=== PATIENT | male | born 1935 | race Caucasian/White ===

== ENCOUNTER 2017-09-05 11:59 | Emergency (ER) | payer MEDICARE, BC ==
[2017-09-05 12:43] VITALS: BP 132/56
--- OUTSIDE RECORDS SUMMARY | 2017-09-05 12:46 | XMS REPORT ---
:1935 External Reference #:[id number] Author Organization [facility] Address [address] [place] [address], [address] [place] [address] Phone [phone] Care Team Providers Name Role Phone Elvis Coello M.D. Care Team Information Windows Security Engineer Unavailable Payers Type Date Identification Numbers Payment Provider Subscriber Medicare Primary Policy Number: [id number] Medicare Part B Santosh Lemusn PayID: [id number] [facility] [address] [place] [address] Medigap Part B Policy Number: [id number] [place] [employer] Santosh Hedrick Steve PayID: [id number] [address] [place] [address] Problems Date Description Provider Status Onset: 10/09/2010 Coronary arteriosclerosis Elvis Coello M.D. Active Onset: 10/09/2010 Type 2 diabetes mellitus Elvis Coello M.D. Active Onset: 10/09/2010 Mixed hyperlipidemia Elvis Coello M.D. Active Onset: 10/09/2010 Benign essential hypertension Elvis Coello M.D. Active Onset: 11/25/2015 Essential hypertension Elvis Coello M.D. Active Family History Date Family Member(s) Problem(s) Comments General Hypercholesterolemia General Hypertension General Coronary Artery Disease (CAD) General Non Insulin Dependent Diabetes Social History Type Date Description Comments Cigarette Use Negative For current cigarette smoker ETOH Use does not use alcohol Smoking Patient has never smoked Allergies, Adverse Reactions, Alerts Date Description Reaction Status Severity Comments 12/23/2016 Avandia active Medications Medication Date Status Form Strength Qnty SIG Indications Ordering Provider Acidophilus 12/23 Active Capsules 60caps take one capsule [place], twice a ENSEMB[employer] MEMBER day by mouth Clopidogrel 04/21 Active Tablets 75mg 90tabs take one Elvis Bisulfate tablet by yanet Coello M.DOlivia every day Metoprolol 02/04 Active Tablets 25mg 180tabs Take One Elvis Tartrate Tablet By Yanet CoelloDOlivia Twice A Day Lexapro 10/14 Active Tablets 20mg 90tabs Take One Elvis Tablet By Yanet Coello M.DOlivia Every Day Humalog 10/26 Active Injection 100Units/ 2Vials S/scale Pricilla /2007 ML Mariluz Jaeger,PaigeNLuz Baker Micardis 06/29 Active Tablets 40mg 90tabs Take One Tablet By Yanet Coello.DOlivia Every Day Nitrostat 12/18 Active Tablets 0.4mg 25tabs 1 Emre A. /2004 Sublingua Libby Real l Q5mins prn Disposable U 12/18 Active 1Box Use as Emre A. 100 Insulin Directed Libby Real Syringes Lipitor 12/18 Active Tablets 20mg 90tabs Take One Tablet By Yanet Coello M.D. Every Day Lantus Active Solution 100Unit/M 40 units Unknown / L bid Finasteride Active Tablets 5mg 90tabs 1 po qd Foresman, Zachary Aspirin Ec Low Active Tablets DR 81mg 1 po qd Emre A. Dose / Libby Real Famotidine Active Tablets 20mg 90tabs Take One Tablet By Yanet Coello M.D. Every Day Ciprofloxacin 01/21 Hx Tablets 500mg 1 by Darrion HCL mouth - twice a 01/31 day x days Promethazine 12/23 Hx Tablets 25mg 1 by Geraldine HCL mouth [place]ky, - every 6 [employer]MB[employer] MEMBER 05/18 hours needed nausea Tylenol With 12/23 Hx Tablets 300-30mg 60tabs 1 by Geraldine Codeine #3 mouth Chesalvador, - every 6 [employer]BER 05/18 hours needed pain Pantoprazole 12/[address] 40mg 30tabs 1 by Geraldine Sodium mouth Cheelizabethnsky, - every day [employer]MBLE MEMBER 01/21 Flagyl 12/19 Hx Tablets 500mg 30tabs 1 by Geraldine mouth Jo, - three [employer]SEMBLE MEMBER 01/02 times day x 14 days Ciprodex 10/26 Hx Suspension 0.3-0.1% 1bottle 2 gtts 380.10 tid x 10 Ivorysalvador, - days [employer]MBLE MEMBER 11/05 Levaquin 10/26 Hx Tablets 500mg 10tabs 1 po qd 380.10 Oumou - M.DOlivia 11/05 Trazodone HCL 07/26 Hx Tablets 50mg 90tabs 1 po qhs 780.79 prn sleep Oumou - M.DOlivia 11/10 Permethrin 04/24 Hx Cream 5% 120ml apply 782.1 Oumou wetzel, - shower in M.D. 04/25 am, bedding Lindane 03/21 Hx Lotion 1% 30cc apply to 782.1 body x 1 Adam, - M.DOlivia 04/24 Oxycodone/Acet 09/21 Hx Tablets 5-325mg 30tabs 1 po q4h Porter aminophen /2011 pain De La Rosa, - M.DOlivia 09/21 Oxycodone/Acet 09/17 Hx Tablets 5-325mg 30tabs 1 po q4h Porter aminophen pain Rj, - M.DOlivia 09/18 Azithromycin 02/06 Hx Tablets 250mg 6tabs 2 tabs po 462 on day 1, Oumou, - then 1 M.D. 05/25 tab po day on days 2-5 Clarinex 02/06 Hx Tablets 5mg samples 1 po qd 462 prn Oumou - M.DOlivia 07/01 Azithromycin 09/10 Hx Tablets 250mg 6tabs 2 tabs po 461.8 on day 1, Oumou, - then 1 M.D. 11/21 tab po day on days 2-5 Lexapro 09/10 Hx Tablets 20mg 45tabs 1/2 po qd Juan Coello M.DOlivia 10/14 Lexapro 08/27 Hx Tablets 20mg 30tabs 1 po qd Elvis Juan Coello M.D. 09/10 Metoprolol 08/27 Hx Tablets ER 25mg 1 po qd Pricilla 24HR Heide - R.N.,F.N.P 08/27 Metoprolol 08/27 Hx Tablets 50mg 1/2 po bid Heide - R.N.,F.N.P 08/27 Metoprolol 08/27 Hx Tablets 50mg 1 po bid Heide - R.N.,F.N.P 02/04 Plavix 10/23 Hx Tablets 75mg 90tabs take one tablet by Oumou, - mouth M.DOlivia 07/05 every day /2015 Levaquin 06/07 Hx Tablets 500mg 10tabs 1 Tab 682.9 Daily For Heide, - Ten Days R.N.,F.N.P 10/15 Lexapro 24 Hx Tablets 10mg 30tabs 1 PO qd Heide - R.N.,F.N.P 08/27 Lexapro 24 Hx Tablets 10mg 90tabs 1 po qd Heide - So.N.,F.N.P 10/26 Aspirin 03/30 Hx Tablets 325mg 1 PO qd Emre A. /2004 Libby Real - 08/18 Regular 07 Hx Injection 100Units/ 10ml uad for Emre Hedrick. Insulin ML coverage Libby Real - 10/26 Lantus 03/30 Hx Injection 100Units/ 20 Units Emre A. /2004 ML qd Libby Real - 02/04 Metoprolol 12/18 Hx Tablets 50mg 90tabs 1/2 po qd Juan Jaeger.N.,F.N.P 08/27 Ecotrin 12/18 Hx Tablets 325mg 1 PO qd Emre A. /2004 Libby Real - 02/01 Omeprazole 12/18 Hx Capsules 20mg 90caps 1 po qd Pricilla /2005 Heide, - R.N.,F.N.P 11/21 Lantus 12/18 Hx Injection 100Units/ 10ml use as Emre Asher ML directed Libby Real - 03/30 Niacin TR 12/18 Hx Tablets ER 500mg 180tabs Take One Tablet By Oumou, - Mouth M.D. 10/18 Twice A Day Oxycodone/Acet Hx Tablets 5-325mg 100tabs 1 po q6h Elvis aminophen /0000 for LeGrett, - severe M.D. 07/21 pain /2012 Oxycontin Hx T12a 15mg 60units 1 po bid Unknown /0000 - 07/26 Oxycodone/Acet Hx Tablets 5-325mg 30tabs 1 po q4h Unknown aminophen /0000 pain - 07/26 Metronidazole Hx Tablets 500mg 1 by Unknown /0000 mouth - three 02/24 times day Vancocin HCL Hx Capsules 125mg 1 by Unknown /0000 mouth - four 02/24 times day Medications Administered in Office Medication Date Status Form Strength Qnty SIG Indications Ordering Provider Admin Of Administered Injection Injection/ Vaccine,One 014 BP Vaccine Schedule Admin Of Administered Injection Elvis Vaccine,One 012 LeGthuyt, Vaccine M.D. Admin Of Administered Injection Elvis Pneumococcal 010 Monalisat, Vaccine M.D. Immunizations CPT Code Status Date Vaccine Lot # [id number] Given 06/29/2016 Fluzone, High Dose 0.5mL [id number] Given 08/23/2014 Zostavax Vaccine 0.5cc [id number] Given 08/18/2012 Zostavax Vaccine 0.5cc [id number] Q2037 Given 07/01/2012 Fluvirin 0.5 ML,[facility] 22845-304-41 [id number] Q2036 Given 06/09/2011 Medicare Flu Vaccine Split Virus [id number] Given 06/09/2011 Flu Vaccine Split Virus(2010) 35522 Given 06/20/2010 Flu Vaccine Split Virus(2010) [id number] Given 09/10/2009 Pneumococcal Vaccine, [facility] [id number], 0.5 ML [id number] 51130 Given 05/23/2009 Flu Vaccine Split Virus(Old 2010) [id number] 99772 Given 07/14/2006 Flu Vaccine Split Virus(Old 2010) Vital Signs Date Vital Result Comment 09/02/2017 Weight 198.00 lb Height 68 inches 5'8" BP Systolic 122 mmHg BP Diastolic 74 mmHg Heart Rate 70 /min Respiratory Rate 18 /min BMI (Body Mass Index) 30.1 kg/m2 03/29/2017 Weight 190.38 lb Height 68 inches 5'8" BP Systolic 120 mmHg BP Diastolic 74 mmHg Heart Rate 64 /min BMI (Body Mass Index) 28.9 kg/m2 02/24/2017 Weight 192.00 lb Height 68 inches 5'8" BP Systolic 130 mmHg BP Diastolic 80 mmHg Heart Rate 74 /min BMI (Body Mass Index) 29.2 kg/m2 01/21/2017 Weight 191.00 lb Height 68 inches 5'8" BP Systolic 138 mmHg BP Diastolic 84 mmHg Heart Rate 80 /min Respiratory Rate 20 /min BMI (Body Mass Index) 29.0 kg/m2 12/23/2016 Weight 191.00 lb Height 68 inches 5'8" BP Systolic 122 mmHg BP Diastolic 60 mmHg Body Temperature 97.2 F Heart Rate 68 /min BMI (Body Mass Index) 29.0 kg/m2 10/22/2016 Weight 201.00 lb Height 68 inches 5'8" BP Systolic 138 mmHg BP Diastolic 66 mmHg Heart Rate 72 /min BMI (Body Mass Index) 30.6 kg/m2 07/07/2016 Weight 202.00 lb Height 68 inches 5'8" BP Systolic 130 mmHg BP Diastolic 70 mmHg Heart Rate 72 /min BMI (Body Mass Index) 30.7 kg/m2 11/25/2015 Weight 206.00 lb Height 68 inches 5'8" BP Systolic 150 mmHg BP Diastolic 80 mmHg Heart Rate 76 /min BMI (Body Mass Index) 31.3 kg/m2 07/26/2015 Weight 201.00 lb Height 68 inches 5'8" BP Systolic 130 mmHg BP Diastolic 60 mmHg Heart Rate 78 /min BMI (Body Mass Index) 30.6 kg/m2 04/15/2015 Weight 204.00 lb Height 68 inches 5'8" BP Systolic 124 mmHg BP Diastolic 68 mmHg Heart Rate 60 /min BMI (Body Mass Index) 31.0 kg/m2 10/18/2014 Weight 204.00 lb Height 68 inches 5'8" BP Systolic 124 mmHg BP Diastolic 60 mmHg Heart Rate 72 /min BMI (Body Mass Index) 31.0 kg/m2 07/09/2014 Weight 200.00 lb Height 68 inches 5'8" BP Systolic 122 mmHg BP Diastolic 62 mmHg Heart Rate 68 /min BMI (Body Mass Index) 30.4 kg/m2 02/09/2014 Weight 202.00 lb Height 68 inches 5'8" BP Systolic 120 mmHg BP Diastolic 70 mmHg Heart Rate 68 /min BMI (Body Mass Index) 30.7 kg/m2 01/15/2014 Weight 203.00 lb Height 68 inches 5'8" BP Systolic 128 mmHg BP Diastolic 72 mmHg Body Temperature 96.8 F Heart Rate 76 /min BMI (Body Mass Index) 30.9 kg/m2 11/10/2013 Weight 200.00 lb Height 68 inches 5'8" BP Systolic 122 mmHg BP Diastolic 70 mmHg Heart Rate 68 /min BMI (Body Mass Index) 30.4 kg/m2 10/26/2013 Weight 201.00 lb Height 68 inches 5'8" BP Systolic 120 mmHg BP Diastolic 80 mmHg Heart Rate 68 /min BMI (Body Mass Index) 30.6 kg/m2 08/09/2013 Weight 192.00 lb Height 68 inches 5'8" BP Systolic 112 mmHg BP Diastolic 60 mmHg Heart Rate 68 /min BMI (Body Mass Index) 29.2 kg/m2 07/26/2013 Weight 193.00 lb Height 68 inches 5'8" BP Systolic 138 mmHg BP Diastolic 80 mmHg Heart Rate 76 /min BMI (Body Mass Index) 29.3 kg/m2 07/21/2013 Weight 196.00 lb Height 68 inches 5'8" BP Systolic 128 mmHg BP Diastolic 70 mmHg Heart Rate 80 /min O2 % BldC Oximetry 97 % BMI (Body Mass Index) 29.8 kg/m2 05/22/2013 Weight 201.00 lb Height 68 inches 5'8" BP Systolic 140 mmHg BP Diastolic 70 mmHg Heart Rate 64 /min BMI (Body Mass Index) 30.6 kg/m2 04/24/2013 Weight 199.00 lb Height 68 inches 5'8" BP Systolic 128 mmHg BP Diastolic 72 mmHg Heart Rate 76 /min BMI (Body Mass Index) 30.3 kg/m2 03/21/2013 Weight 200.00 lb BP Systolic 130 mmHg BP Diastolic 72 mmHg Heart Rate 72 /min 02/20/2013 Weight 196.00 lb Height 68 inches 5'8" BP Systolic 120 mmHg BP Diastolic 70 mmHg Heart Rate 80 /min BMI (Body Mass Index) 29.8 kg/m2 11/22/2012 Weight 199.00 lb Height 68 inches 5'8" BP Systolic 124 mmHg BP Diastolic 70 mmHg Heart Rate 72 /min BMI (Body Mass Index) 30.3 kg/m2 08/18/2012 Weight 198.00 lb Height 68 inches 5'8" BP Systolic 130 mmHg BP Diastolic 80 mmHg Heart Rate 64 /min BMI (Body Mass Index) 30.1 kg/m2 07/01/2012 Weight 193.00 lb Height 68 inches 5'8" BP Systolic 122 mmHg BP Diastolic 60 mmHg Heart Rate 72 /min BMI (Body Mass Index) 29.3 kg/m2 04/19/2012 Weight 197.00 lb Height 68 inches 5'8" BP Systolic 120 mmHg BP Diastolic 72 mmHg Heart Rate 68 /min BMI (Body Mass Index) 30.0 kg/m2 12/11/2011 Weight 197.00 lb Height 68 inches 5'8" BP Systolic 138 mmHg BP Diastolic 70 mmHg Heart Rate 76 /min BMI (Body Mass Index) 30.0 kg/m2 09/08/2011 Weight 198.00 lb Height 68 inches 5'8" BP Systolic 120 mmHg BP Diastolic 70 mmHg Heart Rate 76 /min BMI (Body Mass Index) 30.1 kg/m2 08/13/2011 Weight 198.00 lb Height 68 inches 5'8" BP Systolic 122 mmHg BP Diastolic 62 mmHg Heart Rate 78 /min BMI (Body Mass Index) 30.1 kg/m2 06/09/2011 Weight 198.00 lb Height 68 inches 5'8" BP Systolic 148 mmHg BP Diastolic 72 mmHg Heart Rate 78 /min BMI (Body Mass Index) 30.1 kg/m2 02/06/2011 Weight 196.00 lb Height 68 inches 5'8" BP Systolic 126 mmHg BP Diastolic 80 mmHg Body Temperature 97.6 F Heart Rate 72 /min BMI (Body Mass Index) 29.8 kg/m2 02/04/2011 Weight 198.12 lb Height 68 inches 5'8" BP Systolic 126 mmHg BP Diastolic 82 mmHg Heart Rate 68 /min BMI (Body Mass Index) 30.1 kg/m2 10/09/2010 Weight 198.00 lb Height 68.00 inches 5'8" BP Systolic 130 mmHg BP Diastolic 76 mmHg Heart Rate 80 /min BMI (Body Mass Index) 30.1 kg/m2 11/21/2009 Weight 190.00 lb BP Systolic 128 mmHg BP Diastolic 76 mmHg Heart Rate 84 /min 09/10/2009 Weight 193.00 lb Height 68.00 inches 5'8" BP Systolic 130 mmHg BP Diastolic 70 mmHg Body Temperature 98.0 F Heart Rate 80 /min BMI (Body Mass Index) 29.3 kg/m2 08/27/2009 Weight 195.00 lb BP Systolic 122 mmHg BP Diastolic 80 mmHg Heart Rate 88 /min 05/23/2009 Weight 197.25 lb Height 68 inches 5'8" BP Systolic 122 mmHg BP Diastolic 72 mmHg Heart Rate 72 /min BMI (Body Mass Index) 30.0 kg/m2 02/01/2009 Weight 195.00 lb BP Systolic 100 mmHg BP Diastolic 70 mmHg Heart Rate 72 /min 10/23/2008 Weight 194.00 lb BP Systolic 120 mmHg BP Diastolic 70 mmHg Heart Rate 72 /min 06/07/2007 Weight 198.00 lb BP Systolic 122 mmHg BP Diastolic 80 mmHg Body Temperature 98.5 F Heart Rate 64 /min 02/23/2007 Weight 193.00 lb BP Systolic 120 mmHg BP Diastolic 70 mmHg Heart Rate 72 /min 10/26/2006 Weight 192.00 lb BP Systolic 132 mmHg BP Diastolic 80 mmHg Heart Rate 76 /min 06/29/2006 Weight 191.00 lb BP Systolic 125 mmHg BP Diastolic 70 mmHg Heart Rate 60 /min 03/30/2005 Weight 188.00 lb BP Systolic 114 mmHg BP Diastolic 80 mmHg Heart Rate 68 /min 12/18/2004 Weight 185.00 lb BP Systolic 124 mmHg BP Diastolic 80 mmHg Heart Rate 72 /min Results Test Date Test Result H/L Range Note Auto Diff 02/24/2017 Lymphocytes % 29.70 % 20.5-51.1 Monocytes % 8.20 % 1.7-9.3 Granulocyte % 62.1 % 42.2-75.2 Lymphocytes # 1.9 10^3/uL 0.6-4.1 Monocytes # 0.5 10^3/uL 0.0-1.8 Granulocyte # 3.9 10^3/uL 2.0-7.8 Comp. Metabolic 02/24/2017 Glucose 153.0 mg/dL High 65-110 BUN 12.5 mg/dL 7-21 Co2 24.8 mmol/L 22-30 Sodium 140 mmol/L 137-145 Potassium 5.6 mmol/L High 3.6-5.2 Chloride 107 mmol/L 98-110 Calcium 9.1 mg/dL 9-10.5 Creatinine 0.86 mg/dL 0.52-1.25 eGFR (Male) >60 1 Total Protein 6.73 g/dL 6.3-8.2 Albumin 3.44 g/dL 3.3-4.50 Sgot (Ast) 26.0 U/L 5-40 Alk Phosphatase 81.0 U/L 38-126 Total Bilirubin 1.00 mg/dL 0.2-1.3 SGPT (Alt) 15.0 U/L 7-56 Anion Gap (Calc) 8.2 7-16 BUN/Crea Ratio 14.5 Ratio 7-25 Globulin (Calc) 3.29 g/dL 2.3-3.5 A/G Ratio (Calc) 1.0 Ratio Low 1.1-2.2 Lipid Studies 02/24/2017 Triglycerides 200 mg/dL High 0-149 Cholesterol 178 mg/dL 120-200 HDL Cholesterol 38.0 mg/dL Low 40-60 VLDL (Calc.) 40 mg/dL High <31 Cholesterol/HDL 4.68 Ratio <5.00 LDL (Calc.) 100 mg/dL High 0-99 2 Laboratory test finding 02/24/2017 %A1c 7.6 % High 4.8-6.0 CBC 02/24/2017 WBC 6.3 10^3/uL 4.8-10.8 RBC 4.89 10^6/uL 4.2-6.1 HGB 14.9 g/dL 12.0-18.0 HCT 45.7 % 37-52 MCV 93.5 fL 80.0-99.9 MCH 30.5 pg 26.0-32.0 MCHC 32.6 g/dL 31.0-36.0 RDW 13.40 % 11.0-15.0 MPV 8.9 fL 7.4-10.4 Platelets 201 10^3/uL 130-400 Comp. Metabolic 01/21/2017 Glucose 272.1 mg/dL High 65-110 BUN 14.3 mg/dL 7-21 Co2 27.4 mmol/L 22-30 Sodium 136 mmol/L Low 137-145 Potassium 5.1 mmol/L 3.6-5.2 Chloride 103 mmol/L 98-110 Calcium 9.2 mg/dL 9-10.5 Creatinine 1.06 mg/dL 0.52-1.25 eGFR (Male) >60 3 Total Protein 6.87 g/dL 6.3-8.2 Albumin 3.53 g/dL 3.3-4.50 Sgot (Ast) 27.0 U/L 5-40 Alk Phosphatase 80.0 U/L 38-126 Total Bilirubin 0.59 mg/dL 0.2-1.3 SGPT (Alt) 12.0 U/L 7-56 Anion Gap (Calc) 5.6 Low 7-16 BUN/Crea Ratio 13.5 Ratio 7-25 Globulin (Calc) 3.34 g/dL 2.3-3.5 A/G Ratio (Calc) 1.1 Ratio 1.1-2.2 CBC 01/21/2017 WBC 6.8 10^3/uL 4.8-10.8 RBC 5.15 10^6/uL 4.2-6.1 HGB 15.9 g/dL 12.0-18.0 HCT 47.6 % 37-52 MCV 92.5 fL 80.0-99.9 MCH 30.9 pg 26.0-32.0 MCHC 33.4 g/dL 31.0-36.0 RDW 12.90 % 11.0-15.0 MPV 8.9 fL 7.4-10.4 Platelets 237 10^3/uL 130-400 Auto Diff 01/21/2017 Lymphocytes % 25.80 % 20.5-51.1 Monocytes % 8.00 % 1.7-9.3 Granulocyte % 66.2 % 42.2-75.2 Lymphocytes # 1.8 10^3/uL 0.6-4.1 Monocytes # 0.5 10^3/uL 0.0-1.8 Granulocyte # 4.5 10^3/uL 2.0-7.8 Comp. Metabolic 10/26/2016 Glucose 166.9 mg/dL High 65-110 BUN 24.6 mg/dL High 7-21 Co2 23.3 mmol/L 22-30 Sodium 138 mmol/L 137-145 Potassium 4.7 mmol/L 3.6-5.2 Chloride 104 mmol/L 98-110 Calcium 8.8 mg/dL Low 9-10.5 Creatinine 1.00 mg/dL 0.52-1.25 Total Protein 6.74 g/dL 6.3-8.2 Albumin 3.64 g/dL 3.3-4.50 Sgot (Ast) 25.0 U/L 5-40 Alk Phosphatase 101.0 U/L 38-126 Total Bilirubin 1.15 mg/dL 0.2-1.3 SGPT (Alt) 14.0 U/L 7-56 Anion Gap (Calc) 10.7 7-16 BUN/Crea Ratio 24.6 Ratio 7-25 Globulin (Calc) 3.10 g/dL 2.3-3.5 A/G Ratio (Calc) 1.2 Ratio 1.1-2.2 Lipid Studies 10/26/2016 Triglycerides 136 mg/dL 0-149 Cholesterol 150 mg/dL 120-200 HDL Cholesterol 32.0 mg/dL Low 40-60 VLDL (Calc.) 27 mg/dL <31 Cholesterol/HDL 4.69 Ratio <5.00 LDL (Calc.) 91 mg/dL 0-99 4 Laboratory test finding 10/26/2016 %A1c 7.9 % High 4.8-6.0 eGFR (Male) >60 5 Laboratory test finding 07/07/2016 %A1c 7.3 % High 4.8-6.0 eGFR (Male) >60 6 Thy (TSH And Free T4) 07/07/2016 TSH 3.76 uIU/mL 0.5-6.0 Free T4 0.84 ng/dL 0.75-1.54 B12 & Folate (Internal 07/07/2016 Vitamin B-12 424 pg/mL 200-950 Folate 14.8 ng/mL 7.0-31.4 Auto Diff 07/07/2016 Lymphocytes % 23.90 % 20.5-51.1 Monocytes % 7.00 % 1.7-9.3 Granulocyte % 69.1 % 42.2-75.2 Lymphocytes # 1.5 10^3/uL 0.6-4.1 Monocytes # 0.4 10^3/uL 0.0-1.8 Granulocyte # 4.4 10^3/uL 2.0-7.8 CBC 07/07/2016 WBC 6.3 10^3/uL 4.8-10.8 RBC 4.62 10^6/uL 4.2-6.1 HGB 14.9 g/dL 12.0-18.0 HCT 43.7 % 37-52 MCV 94.6 fL 80.0-99.9 MCH 32.3 pg High 26.0-32.0 MCHC 34.1 g/dL 31.0-36.0 RDW 11.80 % 11.0-15.0 MPV 8.8 fL 7.4-10.4 Platelets 162 10^3/uL 130-400 Lipid Studies 07/07/2016 Triglycerides 162 mg/dL High 0-149 Cholesterol 155 mg/dL 120-200 HDL Cholesterol 38.0 mg/dL Low 40-60 VLDL (Calc.) 32 mg/dL High <31 Cholesterol/HDL 4.08 Ratio <5.00 LDL (Calc.) 85 mg/dL 0-99 7 Comp. Metabolic 07/07/2016 Glucose 226.0 mg/dL High 65-110 BUN 20.7 mg/dL 7-21 Co2 23.3 mmol/L 22-30 Sodium 138 mmol/L 137-145 Potassium 5.0 mmol/L 3.6-5.2 Chloride 105 mmol/L 98-110 Calcium 9.3 mg/dL 9-10.5 Creatinine 0.99 mg/dL 0.52-1.25 Total Protein 6.78 g/dL 6.3-8.2 Albumin 3.76 g/dL 3.3-4.50 Sgot (Ast) 27.0 U/L 5-40 Alk Phosphatase 86.0 U/L 38-126 Total Bilirubin 1.26 mg/dL 0.2-1.3 SGPT (Alt) 15.0 U/L 7-56 Anion Gap (Calc) 9.7 7-16 BUN/Crea Ratio 20.9 Ratio 7-25 Globulin (Calc) 3.02 g/dL 2.3-3.5 A/G Ratio (Calc) 1.2 Ratio 1.1-2.2 Comp. Metabolic 11/26/2015 Glucose 147.0 mg/dL High 65-110 BUN 19.8 mg/dL 7-21 Co2 26.1 mmol/L 22-30 Sodium 139 mmol/L 137-145 Potassium 4.7 mmol/L 3.6-5.2 Chloride 105 mmol/L 98-110 Calcium 9.0 mg/dL 9-10.5 Creatinine 0.97 mg/dL 0.52-1.25 Total Protein 6.79 g/dL 6.3-8.2 Albumin 3.82 g/dL 3.3-4.50 Sgot (Ast) 24.0 U/L 5-40 Alk Phosphatase 94.0 U/L 38-126 Total Bilirubin 1.38 mg/dL High 0.2-1.3 SGPT (Alt) 11.0 U/L 7-56 Anion Gap (Calc) 7.9 7-16 BUN/Crea Ratio 20.4 Ratio 7-25 Globulin (Calc) 2.97 g/dL 2.3-3.5 A/G Ratio (Calc) 1.3 Ratio 1.1-2.2 Lipid Studies 11/26/2015 Triglycerides 164 mg/dL High 0-149 Cholesterol 168 mg/dL 120-200 HDL Cholesterol 40.0 mg/dL 40-60 VLDL (Calc.) 33 mg/dL High <31 Cholesterol/HDL 4.20 Ratio <5.00 LDL (Calc.) 95 mg/dL 0-99 8 Laboratory test finding 11/26/2015 Magnesium 2.5 mg/dL High 1.7-2.2 %A1c 8.0 % High 4.2-5.8 PSA 0.70 ng/mL 0-4.0 eGFR (Male) 79 >59 9 Laboratory test finding 04/15/2015 %A1c 8.0 % High 4.2-5.8 10 Comp. Metabolic 04/15/2015 Glucose 253.9 mg/dL High 65-110 BUN 19.0 mg/dL 7-21 Co2 25.4 mmol/L 22-30 Sodium 138 mmol/L 137-145 Potassium 4.8 mmol/L 3.6-5.2 Chloride 104 mmol/L 98-110 Calcium 9.5 mg/dL 9-10.5 Creatinine 1.00 mg/dL 0.52-1.25 Total Protein 6.89 g/dL 6.3-8.2 Albumin 3.67 g/dL 3.3-4.50 Sgot (Ast) 22.0 U/L 5-40 Alk Phosphatase 95.0 U/L 38-126 Total Bilirubin 1.01 mg/dL 0.2-1.3 SGPT (Alt) 9.0 U/L 7-56 Anion Gap (Calc) 8.6 7-16 BUN/Crea Ratio 19.0 Ratio 7-25 Globulin (Calc) 3.22 g/dL 2.3-3.5 A/G Ratio (Calc) 1.1 Ratio 1.1-2.2 Lipid Studies 04/15/2015 Triglycerides 151 mg/dL High 0-149 Cholesterol 167 mg/dL 120-200 HDL Cholesterol 44.0 mg/dL 40-60 VLDL (Calc.) 30 mg/dL <31 Cholesterol/HDL 3.80 Ratio <5.00 LDL (Calc.) 93 mg/dL 0-99 11 Laboratory test finding 04/15/2015 eGFR (Male) 77 >59 12 Laboratory test finding 11/13/2014 %A1c 8.2 % High 4.2-5.8 13 Comp. Metabolic 11/13/2014 Glucose 216.7 mg/dL High 65-110 BUN 17.9 mg/dL 7-21 Co2 26.4 mmol/L 22-30 Sodium 140 mmol/L 137-145 Potassium 4.6 mmol/L 3.6-5.2 Chloride 104 mmol/L 98-110 Calcium 9.5 mg/dL 9-10.5 Creatinine 0.99 mg/dL 0.52-1.25 Total Protein 7.19 g/dL 6.3-8.2 Albumin 3.93 g/dL 3.3-4.50 Sgot (Ast) 22.0 U/L 5-40 Alk Phosphatase 95.0 U/L 38-126 Total Bilirubin 1.13 mg/dL 0.2-1.3 SGPT (Alt) 14.0 U/L 7-56 Anion Gap (Calc) 9.6 7-16 BUN/Crea Ratio 18.1 Ratio 7-25 Globulin (Calc) 3.26 g/dL 2.3-3.5 A/G Ratio (Calc) 1.2 Ratio 1.1-2.2 Laboratory test finding 11/13/2014 eGFR (Male) 78 >59 14 Lipid Studies 11/13/2014 Triglycerides 161 mg/dL High 0-149 Cholesterol 171 mg/dL 120-200 HDL Cholesterol 42.0 mg/dL 40-60 VLDL (Calc.) 32 mg/dL High <31 Cholesterol/HDL 4.07 Ratio <5.00 LDL (Calc.) 97 mg/dL 0-99 15 Laboratory test finding 07/11/2014 %A1c 8.2 % High 4.2-5.8 PSA 0.58 ng/mL 0-4.0 eGFR (Male) 69 >59 16 Lipid Studies 07/11/2014 Triglycerides 139 mg/dL 0-149 Cholesterol 162 mg/dL 120-200 HDL Cholesterol 39.0 mg/dL Low 40-60 VLDL (Calc.) 28 mg/dL <31 Cholesterol/HDL 4.15 Ratio <5.00 LDL (Calc.) 95 mg/dL 0-99 17 Comp. Metabolic 07/11/2014 Glucose 206.8 mg/dL High 65-110 BUN 17.4 mg/dL 7-21 Co2 24.2 mmol/L 22-30 Sodium 139 mmol/L 137-145 Potassium 4.6 mmol/L 3.6-5.2 Chloride 104 mmol/L 98-110 Calcium 9.0 mg/dL 9-10.5 Creatinine 1.09 mg/dL 0.52-1.25 Total Protein 6.82 g/dL 6.3-8.2 Albumin 3.65 g/dL 3.3-4.50 Sgot (Ast) 22.0 U/L 5-40 Alk Phosphatase 95.0 U/L 38-126 Total Bilirubin 1.18 mg/dL 0.2-1.3 SGPT (Alt) 12.0 U/L 7-56 Anion Gap (Calc) 10.8 7-16 BUN/Crea Ratio 16.0 Ratio 7-25 Globulin (Calc) 3.17 g/dL 2.3-3.5 A/G Ratio (Calc) 1.2 Ratio 1.1-2.2 Comprehensive Panel 11/29/2013 Sodium 138 mmol/L 136-145 Potassium 4.7 mmol/L 3.6-5.2 Chloride 98 mmol/L Low 100-108 Co2 24 mmol/L 21-32 Glucose 211 mg/dL High 70-110 Glu Range Header [facility] [place] [facility] <SEE NOTE> 18 BUN 14 mg/dL 7-21 Creatinine 0.6 mg/dL 0.6-1.3 Calcium 9.2 mg/dL 8.5-10.8 GFR >60 GFR Ranges Normal Kidney Fu <SEE NOTE> 19 T Bili 1.2 mg/dL High 0.0-1.0 T Protein 7.4 gm/dL 6.4-8.2 Albumin 3.9 gm/dL 3.2-4.6 Alk Phos 102 U/L 50-136 Alt (SGPT) 19 U/L 12-78 Ast (Sgot) 22 U/L 15-37 Laboratory test finding 11/29/2013 A1c 8.2 % High 4.8-6.0 Lipid Panel 11/29/2013 Cholesterol 186 mg/dL 120-200 Triglycerides 249 mg/dL High 0-149 HDL Cholesterol 43 mg/dL 40-60 Chol/HDL Ratio 4.3 Chol/HDL Ranges Cholesterol/HDL <SEE NOTE> 20 LDL Direct 101 mg/dL High 0-99 VLDL Calculated 50 CBC 07/26/2013 WBC 5.5 10^3/uL 4.8-10.8 RBC 4.87 10^6/uL 4.2-6.1 HGB 14.9 g/dL 12.0-18.0 HCT 44.1 % 37-52 MCV 90.5 fL 80.0-99.0 MCH 30.7 pg 27.0-31.0 MCHC 33.9 g/dL 33.0-37.0 RDW 12.00 % 11.0-15.0 MPV 9.1 fL 7.4-10.4 Platelets 176 10^3/uL 130-400 Laboratory test finding 07/26/2013 Glucose 382.0 mg/dL High 65-110 21 Sodium 134 mEq/L Low 137-145 Potassium 4.5 mEq/L 3.6-5.2 Chloride 100 mEq/L 98-107 Calcium 9.4 mg/dL 9-10.5 Total Protein 7.62 g/dL 6.3-8.2 Albumin 07/26/2013 Albumin 3.61 g/dL 3.3-4.50 Globulin (Calc) 4.01 g/dL High 2.3-3.5 A/G Ratio (Calc) 0.9 Ratio Low 1.1-2.2 Comprehensive Panel 07/26/2013 Sodium 137 mmol/L 136-145 Potassium 4.3 mmol/L 3.6-5.2 Chloride 99 mmol/L Low 100-108 Co2 26 mmol/L 21-32 Glucose 361 mg/dL High 70-110 Glu Range Header [facility] [place] [facility] <SEE NOTE> 22 BUN 19 mg/dL 7-21 Creatinine 0.9 mg/dL 0.6-1.3 Calcium 8.8 mg/dL 8.5-10.8 GFR >60 GFR Ranges Normal Kidney Fu <SEE NOTE> 23 T Bili 0.5 mg/dL 0.0-1.0 T Protein 7.7 gm/dL 6.4-8.2 Albumin 3.7 gm/dL 3.2-4.6 Alk Phos 180 U/L High 50-136 Alt (SGPT) 23 U/L 12-78 Ast (Sgot) 25 U/L 15-37 Lipid Panel 06/21/2013 Cholest SerPl-mCnc 174 mg/dL 120-200 Trigl SerPl-mCnc 233 mg/dL High 0-149 HDLc SerPl-mCnc 43 mg/dL 40-60 Cholest/HDLc SerPl-mRto 4.0 Chol/HDL Ranges Cholesterol/HDL <SEE NOTE> 24 LDLc SerPl Direct Assay-mCnc 75 mg/dL 0-99 VLDLc SerPl Calc-mCnc 47 Comprehensive Panel 06/21/2013 Sodium SerPl-sCnc 138 mmol/L 136-145 Potassium SerPl-sCnc 4.4 mmol/L 3.6-5.2 Chloride SerPl-sCnc 100 mmol/L 100-108 Co2 SerPl-sCnc 28 mmol/L 21-32 Glucose SerPl-mCnc 176 mg/dL High 70-110 Glu Range Header [employer] [place] [employer] <SEE NOTE> 25 BUN SerPl-mCnc 13 mg/dL 7-21 Creat SerPl-mCnc 0.8 mg/dL 0.6-1.3 Ca-I SerPl-mCnc 8.7 mg/dL 8.5-10.8 43488-0 >60 GFR Ranges Normal Kidney Fu <SEE NOTE> 26 Bilirub Bld-mCnc 1.1 mg/dL High 0.0-1.0 Prot SerPl-mCnc 6.8 gm/dL 6.4-8.2 Albumin SerPl-mCnc 3.7 gm/dL 3.2-4.6 Alp SerPl-cCnc 110 U/L 50-136 Alt SerPl-cCnc 23 U/L 12-78 Ast SerPl-cCnc 26 U/L 15-37 Laboratory test finding 06/21/2013 A1c 8.3 % High 4.8-6.0 Laboratory test finding 02/22/2013 A1c 7.4 % High 4.8-6.0 PSA 02/22/2013 PSA 0.99 ng/mL 0.03-4.00 PSA Reference [place] Methodology <SEE NOTE> 27 Lipid Panel 02/22/2013 Cholesterol 155 mg/dL 120-200 Triglycerides 191 mg/dL High 0-149 High Density Lipoprotein 46 mg/dL 40-60 Chol/HDL Ratio 3.4 Chol/HDL Reference Cholesterol/HDL <SEE NOTE> 28 LDL Direct 57 mg/dL 0-99 Very Low Density Lipoprotein 38 Comprehensive Panel 02/22/2013 Sodium 139 mmol/L 136-145 Potassium 4.7 mmol/L 3.6-5.2 Chloride 102 mmol/L 100-108 Carbon Dioxide 28 mmol/L 21-32 Glucose 169 mg/dL High 70-110 Glucose Range Header [employer] [place] [facility] <SEE NOTE> 29 BUN 15 mg/dL 7-21 Creatinine 0.8 mg/dL 0.6-1.3 Calcium 8.7 mg/dL 8.5-10.8 GFR >60 GFR Reference Normal Kidney Fu <SEE NOTE> 30 Total Bilirubin 1.0 mg/dL 0.0-1.0 Total Protein 7.4 gm/dL 6.4-8.2 Albumin 4.0 gm/dL 3.2-4.6 Alk Phos 99 U/L 50-136 Alt(SGPT) 17 U/L 12-78 Ast (Sgot) 26 U/L 15-37 Laboratory test finding 05/25/2012 A1c 7.9 % High 4.8-6.0 Comprehensive Panel 05/25/2012 Sodium 138 mmol/L 136-145 Potassium 4.3 mmol/L 3.6-5.2 Chloride 103 mmol/L 100-108 Carbon Dioxide 26 mmol/L 21-32 Glucose 193 mg/dL High 70-110 Glucose Range Header [employer] [place] [employer] <SEE NOTE> 31 BUN 18 mg/dL 7-21 Creatinine 0.9 mg/dL 0.6-1.3 Calcium 8.9 mg/dL 8.5-10.8 GFR >60 GFR Reference Normal Kidney Fu <SEE NOTE> 32 Total Bilirubin 0.9 mg/dL 0.0-1.0 Total Protein 7.2 gm/dL 6.4-8.2 Albumin 4.0 gm/dL 3.2-4.6 Alk Phos 80 U/L 50-136 Alt(SGPT) 25 U/L 12-78 Ast (Sgot) 27 U/L 15-37 Lipid Panel 05/25/2012 Cholesterol 172 mg/dL 120-200 Triglycerides 190 mg/dL High 0-149 High Density Lipoprotein 51 mg/dL 40-60 Chol/HDL Ratio 3.4 Chol/HDL Reference Cholesterol/HDL <SEE NOTE> 33 LDL Direct 92 mg/dL 0-99 Very Low Density Lipoprotein 38 Comp. Metabolic 12/11/2011 Glucose 176.4 mg/dL High 65-110 BUN 16.0 mg/dL 7-21 Co2 25.6 mEq/L 22-30 Sodium 138 mEq/L 137-145 Potassium 4.4 mEq/L 3.6-5.0 Chloride 103 mEq/L 98-107 Calcium 9.6 mg/dL 9-10.5 Creatinine 1.03 mg/dL 0.52-1.25 Total Protein 7.11 g/dL 6.3-8.2 Albumin 4.15 g/dL 3.3-4.50 Sgot (Ast) 26.0 IU/L 5-40 Alk Phosphatase 98.0 IU/L 38-126 Total Bilirubin 0.68 mg/dL 0.2-1.3 SGPT (Alt) 14.0 IU/L 7-56 Anion Gap (Calc) 9.4 7-16 BUN/Crea Ratio 15.5 Ratio 7-25 Globulin (Calc) 2.96 g/dL 2.3-3.5 A/G Ratio (Calc) 1.4 Ratio 1.1-2.2 Laboratory test finding 12/11/2011 %A1c 7.3 % High 4.2-5.8 Lipid Studies 12/11/2011 Triglycerides 136 mg/dL 0-149 Cholesterol 152 mg/dL 120-200 HDL Cholesterol 45.0 mg/dL 40-60 VLDL (Calc.) 27 mg/dL <31 Cholesterol/HDL 3.38 Ratio <5.00 LDL (Calc.) 80 mg/dL 0-99 34 Laboratory test finding 12/11/2011 PSA 0.93 ng/mL 0-4.0 eGFR (Male) 75 >59 35 Laboratory test finding 09/09/2011 A1c 8.1 % High 4.8-6.0 Lipid Panel 09/09/2011 Cholesterol 154 mg/dL 120-200 Triglycerides 141 mg/dL 0-149 High Density Lipoprotein 49 mg/dL 40-60 Chol/HDL Ratio 3.1 Chol/HDL Reference Cholesterol/HDL <SEE NOTE> 36 LDL Direct 79 mg/dL 0-99 Very Low Density Lipoprotein 28 Comprehensive Panel 09/09/2011 Sodium 142 mmol/L 136-145 Potassium 4.9 mmol/L 3.6-5.2 Chloride 102 mmol/L 100-108 Carbon Dioxide 30 mmol/L 21-32 Glucose 138 mg/dL High 70-110 Glucose Range Header [employer] [place] [facility] <SEE NOTE> 37 BUN 17 mg/dL 7-21 Creatinine 0.9 mg/dL 0.6-1.3 Calcium 8.6 mg/dL 8.5-10.8 GFR >60 GFR Reference Normal Kidney Fu <SEE NOTE> 38 Total Bilirubin 0.9 mg/dL 0.0-1.0 Total Protein 7.4 gm/dL 6.4-8.2 Albumin 4.0 gm/dL 3.2-4.6 Alk Phos 110 U/L 50-136 Alt(SGPT) 22 U/L 12-78 Ast (Sgot) 25 U/L 15-37 Laboratory test finding 02/09/2011 %A1c 7.1 % High 4.2-5.8 eGFR (Male) 73 >59 39 Lipid Studies 02/09/2011 Triglycerides 112 mg/dL 0-149 Cholesterol 157 mg/dL 120-200 HDL Cholesterol 48.0 mg/dL 40-60 VLDL (Calc.) 22 mg/dL <31 Cholesterol/HDL 3.27 Ratio <5.00 LDL (Calc.) 87 mg/dL 0-99 40 Comp. Metabolic 02/09/2011 Glucose 154.3 mg/dL High 65-110 BUN 22.1 mg/dL High 7-21 Co2 25.2 mEq/L 22-30 Sodium 139 mEq/L 137-145 Potassium 4.6 mEq/L 3.6-5.0 Chloride 103 mEq/L 98-107 Calcium 9.6 mg/dL 9-10.5 Creatinine 1.05 mg/dL 0.52-1.25 Total Protein 7.49 g/dL 6.3-8.2 Albumin 4.27 g/dL 3.3-4.50 Sgot (Ast) 30.0 IU/L 5-40 Alk Phosphatase 112.0 IU/L 38-126 Total Bilirubin 1.57 mg/dL High 0.2-1.3 SGPT (Alt) 20.0 IU/L 7-56 Anion Gap (Calc) 10.8 7-16 BUN/Crea Ratio 21.0 Ratio 7-25 Globulin (Calc) 3.22 g/dL 2.3-3.5 A/G Ratio (Calc) 1.3 Ratio 1.1-2.2 Comp. Metabolic 10/09/2010 Glucose 200.7 mg/dL High 65-110 BUN 17.3 mg/dL 7-21 Co2 23.2 mEq/L 22-30 Sodium 139 mEq/L 137-145 Potassium 4.5 mEq/L 3.6-5.0 Chloride 104 mEq/L 98-107 Calcium 9.6 mg/dL 9-10.5 Creatinine 0.98 mg/dL 0.52-1.25 Total Protein 7.09 g/dL 6.3-8.2 Albumin 4.11 g/dL 3.3-4.50 Sgot (Ast) 30.0 IU/L 5-40 Alk Phosphatase 95.0 IU/L 38-126 Total Bilirubin 1.37 mg/dL High 0.2-1.3 SGPT (Alt) 18.0 IU/L 7-56 Anion Gap (Calc) 11.8 7-16 BUN/Crea Ratio 17.7 Ratio 7-25 Globulin (Calc) 2.98 g/dL 2.3-3.5 A/G Ratio (Calc) 1.4 Ratio 1.1-2.2 Lipid Studies 10/09/2010 Triglycerides 132 mg/dL 0-149 Cholesterol 152 mg/dL 120-200 HDL Cholesterol 39.0 mg/dL Low 40-60 VLDL (Calc.) 26 mg/dL <31 Cholesterol/HDL 3.90 Ratio <5.00 LDL (Calc.) 87 mg/dL 0-99 41 Laboratory test finding 10/09/2010 %A1c 7.1 % High 4.2-5.8 PSA 5.00 ng/mL High 0-4.0 eGFR (Male) 79 >59 42 Comp. Metabolic 11/21/2009 Glucose 100.0 mg/dL 65-110 BUN 17.1 mg/dL 7-21 Co2 26.4 mEq/L 22-30 Sodium 140 mEq/L 137-145 Potassium 4.2 mEq/L 3.6-5.0 Chloride 103 mEq/L 98-107 Calcium 9.5 mg/dL 9-10.5 Creatinine 0.80 mg/dL 0.52-1.25 Total Protein 7.37 g/dL 6.3-8.2 Albumin 4.11 g/dL 3.3-4.50 Sgot (Ast) 30.0 IU/L 5-40 Alk Phosphatase 95.0 IU/L 38-126 Total Bilirubin 0.66 mg/dL 0.2-1.3 SGPT (Alt) 17.0 IU/L 7-56 Anion Gap (Calc) 10.6 7-16 BUN/Crea Ratio 21.4 Ratio 7-25 Globulin (Calc) 3.26 g/dL 2.3-3.5 A/G Ratio (Calc) 1.3 Ratio 1.1-2.2 Laboratory test finding 11/21/2009 %A1c 6.4 % High 4.2-5.8 eGFR (Male) 100 43 PSA Screening 01/09/2009 Screening PSA 2.20 ng/mL (0.03-4.00) 44 Laboratory test finding 10/26/2006 PSA 1.82 ng/mL 0-4.0 Laboratory test finding 06/30/2006 PSA 2.54 ng/mL 0-4.0 Lipid Studies 06/30/2006 Triglycerides 79 mg/dL 35-160 Cholesterol 144 mg/dL 120-200 HDL Cholesterol 53.0 mg/dL 40-60 LDL (Calc.) 75 mg/dL 0-99 VLDL (Calc.) 16 mg/dL <31 Cholesterol/HDL 2.72 Ratio <5.00 Hepatic Panel A 06/30/2006 Albumin 4.40 g/dL 3.3-4.50 Sgot (Ast) 39.0 IU/L 5-40 Alk Phosphatase 114.0 IU/L 38-126 SGPT (Alt) 36.0 IU/L 7-56 Total Bilirubin 1.40 mg/dL High 0.2-1.3 Bili Unconjugate 1.200 mg/dL 0.0-27.0 Bili Conjugated 0.000 mg/dL 0.0-27.0 Total Protein 7.40 g/dL 6.3-8.2 Globulin (Calc) 3.00 g/dL 2.3-3.5 A/G Ratio (Calc) 1.5 Ratio 1.1-2.2 Direct Bili 0.20 mg/dL 0.00-0.4 Basic Metabolic 06/30/2006 Glucose 137.0 mg/dL High 65-110 BUN 18.0 mg/dL 7-21 Creatinine 1.00 mg/dL 0.7-1.5 Co2 28.0 mEq/L 22-30 Sodium 139 mEq/L 137-145 Potassium 4.1 mEq/L 3.6-5.0 Chloride 101 mEq/L 98-107 Calcium 9.6 mg/dL 9-10.5 Anion Gap (Calc) 10.0 7-16 BUN/Crea Ratio 18.0 Ratio 7 Laboratory test finding 06/30/2006 Glycohgb (A1c) 6.7 % High 4.4-6.4 Laboratory test finding 01/06/2005 Glycohgb (A1c) 7.0 % High 4.4-6.4 PSA 2.90 ng/mL 0-4.0 Basic Metabolic 01/06/2005 Glucose 147.0 mg/dL High 65-110 BUN 16.0 mg/dL 7-21 Creatinine 1.00 mg/dL 0.7-1.5 Co2 27.0 mEq/L 22-30 Sodium 140 mEq/L 137-145 Potassium 4.7 mEq/L 3.6-5.0 Chloride 100 mEq/L 98-107 Calcium 9.7 mg/dL 9-10.5 Anion Gap (Calc) 13.0 7-16 BUN/Crea Ratio 16.0 Ratio 7-25 Hepatic Panel A 01/06/2005 Albumin 4.40 g/dL 3.3-4.50 Sgot (Ast) 46.0 IU/L High 5-40 Alk Phosphatase 124.0 IU/L 38-126 SGPT (Alt) 30.0 IU/L 7-56 Total Bilirubin 1.20 mg/dL 0.2-1.3 Bili Unconjugate 0.900 mg/dL 0.0-27.0 Bili Conjugated 0.000 mg/dL 0.0-27.0 Total Protein 7.40 g/dL 6.3-8.2 Globulin (Calc) 3.00 g/dL 2.3-3.5 A/G Ratio (Calc) 1.5 Ratio 1.1-2.2 Direct Bili 0.30 mg/dL 0.00-0.4 Lipid Studies 01/06/2005 Triglycerides 71 mg/dL 35-160 Cholesterol 119 mg/dL 54-201 HDL Cholesterol 50.0 mg/dL 29-86 LDL (Calc.) 55 mg/dL 0-160 VLDL (Calc.) 14 mg/dL Cholesterol/HDL 2.38 Ratio <5.00 1 For Patients, multiply result by 1.159 Units expressed as mL/min/1.73m^2 Normal Range is > or=to 60. 2 LDL(Calc.) invalid if triglycerides >400. 3 For Patients, multiply result by 1.159 Units expressed as mL/min/1.73m^2 Normal Range is > or=to 60. 4 LDL(Calc.) invalid if triglycerides >400. 5 Units expressed as mL/min/1.73m^2 Normal Range is > or=to 60. 6 Units expressed as mL/min/1.73m^2 Normal Range is > or=to 60. 7 LDL(Calc.) invalid if triglycerides >400. 8 LDL(Calc.) invalid if triglycerides >400. 9 Units expressed as mL/min/1.73m^2 10 FASTING 11 LDL(Calc.) invalid if triglycerides >400. 12 Units expressed as mL/min/1.73m^2 13 FASTING 14 Units expressed as mL/min/1.73m^2 15 LDL(Calc.) invalid if triglycerides >400. 16 Units expressed as mL/min/1.73m^2 17 LDL(Calc.) invalid if triglycerides >400. 18 The [place] [employer] recommends that the upper limit of the normal reference range for Glucose be 100 mg/dl. 19 Normal Kidney Function or Mild Disease - GFR >OR=60 Chronic Kidney Disease - GFR 15-59 Renal Failure - GFR < 15 GFR not calculated on patients under 18 years of age. Calculated (estimated) G FR is based on the MDRD Study equation, which assumes a steady state for creatinine. Estimated GFR may not be appropriate for medication dosing. 20 Cholesterol/HDL Ratio Interpretation Risk : 1/2 Avg Avg 2x Avg 3x Avg Male : 3.43 4.97 9.50 23.99 Female : 3.27 4.44 7.05 11.04 21 FASTING copy to DIC has CT 07/27-9:30 am 22 The [place] [employer] recommends that the upper limit of the normal reference range for Glucose be 100 mg/dl. 23 Normal Kidney Function or Mild Disease - GFR >OR=60 Chronic Kidney Disease - GFR 15-59 Renal Failure - GFR < 15 GFR not calculated on patients under 18 years of age. Calculated (estimated) G FR is based on the MDRD Study equation, which assumes a steady state for creatinine. Estimated GFR may not be appropriate for medication dosing. 24 Cholesterol/HDL Ratio Interpretation Risk : 1/2 Avg Avg 2x Avg 3x Avg Male : 3.43 4.97 9.50 23.99 Female : 3.27 4.44 7.05 11.04 25 The [place] [employer] recommends that the upper limit of the normal reference range for Glucose be 100 mg/dl. 26 Normal Kidney Function or Mild Disease - GFR >OR=60 Chronic Kidney Disease - GFR 15-59 Renal Failure - GFR < 15 GFR not calculated on patients under 18 years of age. Calculated (estimated) G FR is based on the MDRD Study equation, which assumes a steady state for creatinine. Estimated GFR may not be appropriate for medication dosing. 27 Methodology Change [employer] 500 Chemiluminescent Immunoassay based on [employer] technology Do NOT use interchangeably with other methods. NOT to be used as a Cancer Screening NOR as a guide in Disease Staging. 28 Cholesterol/HDL Ratio Interpretation Risk : 1/2 Avg Avg 2x Avg 3x Avg Male : 3.43 4.97 9.50 23.99 Female : 3.27 4.44 7.05 11.04 29 The [place] [employer] recommends that the upper limit of the normal reference range for Glucose be 100 mg/dl. 30 Normal Kidney Function or Mild Disease - GFR >OR=60 Chronic Kidney Disease - GFR 15-59 Renal Failure - GFR < 15 GFR not calculated on patients under 18 years of age. Calculated (estimated) G FR is based on the MDRD Study equation, which assumes a steady state for creatinine. Estimated GFR may not be appropriate for medication dosing. 31 The [place] [employer] recommends that the upper limit of the normal reference range for Glucose be 100 mg/dl. 32 Normal Kidney Function or Mild Disease - GFR >OR=60 Chronic Kidney Disease - GFR 15-59 Renal Failure - GFR < 15 GFR not calculated on patients under 18 years of age. Calculated (estimated) G FR is based on the MDRD Study equation, which assumes a steady state for creatinine. Estimated GFR may not be appropriate for medication dosing. 33 Cholesterol/HDL Ratio Interpretation Risk : 1/2 Avg Avg 2x Avg 3x Avg Male : 3.43 4.97 9.50 23.99 Female : 3.27 4.44 7.05 11.04 34 LDL(Calc.) invalid if triglycerides >400. 35 Units expressed as mL/min/1.73m^2 36 Cholesterol/HDL Ratio Interpretation Risk : 1/2 Avg Avg 2x Avg 3x Avg Male : 3.43 4.97 9.50 23.99 Female : 3.27 4.44 7.05 11.04 37 The [place] [employer] recommends that the upper limit of the normal reference range for Glucose be 100 mg/dl. 38 Normal Kidney Function or Mild Disease - GFR >OR=60 Chronic Kidney Disease - GFR 15-59 Renal Failure - GFR < 15 GFR not calculated on patients under 18 years of age. Calculated (estimated) G FR is based on the MDRD Study equation, which assumes a steady state for creatinine. Estimated GFR may not be appropriate for medication dosing. 39 Units expressed as mL/min/1.73m^2 40 LDL(Calc.) invalid if triglycerides >400. 41 LDL(Calc.) invalid if triglycerides >400. 42 Units expressed as mL/min/1.73m^2 43 Units expressed as mL/min/1.73m^2 44 [employer]ul[employer] Chemiluminescent Methodology. Prostate Specific Antigen assay results should NOT be used interchangeably with other PSA Methodologies. NOT TO BE USED A CANCER SCREENING TEST NOR A GUIDE IN DISEASE STAGING. Testing performed by [facility] [place], [address] [place] [id number] Procedures Date CPT Code Description Status Comment 02/09/2014 92275 EKG - In Office Completed 10/09/2010 84394 EKG - In Office Completed 09/17/2009 Colonoscopy Completed Document: 09/17/09 - Colonoscopy/Berny 10/18/2008 Colonoscopy Completed Encounters Type Date Location Provider CPT E/M Dx Office Visit 03/29/2017 10:15a Main Office Elvis Coello M.D. 39001 I25.10 Office Visit 02/24/2017 10:45a Main Office Elvis Coello M.D. 19362 K57.32 E11.9 E78.2 A04.7 Office Visit 01/21/2017 11:15a Main Office Elvis Coello M.D. 59810 K57.32 Office Visit 12/23/2016 9:40a Main Office AMIE Burton 47581 A04.7 R07.89 R10.84 Office Visit 10/22/2016 11:15a Main Office Elvis Coello M.D. 81478 I25.10 E78.2 E11.9 I10 Office Visit 07/07/2016 10:15a Main Office Elvis Coello M.D. 17400 I25.10 E11.9 I10 E78.2 F41.9 R53.83 Office Visit 11/25/2015 9:15a Main Office Elvis Coello M.D. 28999 I25.10 E11.9 I10 E78.2 Office Visit 07/26/2015 10:00a Main Office Elvis Coello M.D. 22859 I25.10 E11.9 R19.7 Office Visit 10/18/2014 11:00a Main Office Elvis Coello M.D. 76329 414.01 250.00 401.1 272.2 Office Visit 07/09/2014 11:45a Main Office Elvis Coello M.D. 63042 414.01 250.00 401.1 272.2 Office Visit 02/09/2014 9:30a Main Office Elvis Coello M.D. 73154 414.01 250.00 401.1 272.2 366.8 V72.84 Office Visit 01/15/2014 10:40a Main Office AMIE Burton 06113 726.33 Office Visit 11/10/2013 9:00a Main Office Elvis Coello M.D. 74779 414.01 250.00 401.1 272.2 Office Visit 10/26/2013 9:45a Main Office Elvis Coello M.D. 66138 380.10 Office Visit 08/09/2013 1:45p Main Office Elvis Coello M.D. 83554 780.79 Office Visit 07/26/2013 3:45p Main Office Elvis Coello M.D. 72255 780.79 Office Visit 07/21/2013 11:20a Main Office Geraldine OsorioNATALIEP 06263 807.11 Office Visit 05/22/2013 9:45a Main Office Elvis Coello M.D. 24451 250.00 401.1 272.2 414.01 Office Visit 04/24/2013 4:15p Main Office Elvis Coello M.D. 44000 782.1 Office Visit 03/21/2013 11:15a Main Office Derrek Medina M.D. 45065 782.1 Office Visit 02/20/2013 8:30a Main Office Elvis Coello M.D. 58537 723.1 401.1 250.00 272.2 414.01 Office Visit 11/22/2012 10:30a Main Office Elvis Coello M.D. 81216 723.1 401.1 250.00 272.2 414.01 Office Visit 08/18/2012 9:15a Main Office Elvis Coello M.D. 04670 414.01 401.1 272.2 250.00 723.1 V05.8 Office Visit 07/01/2012 11:45a Main Office Elvis Coello M.D. 06286 414.01 401.1 272.2 250.00 723.1 V04.81 Office Visit 04/19/2012 10:00a Main Office Elvis Coello M.D. 50243 850.9 250.00 401.1 272.2 414.01 Office Visit 12/11/2011 10:15a Main Office Elvis Coello M.D. 36272 850.9 723.1 250.00 272.2 Office Visit 09/08/2011 10:30a Main Office Elvis Coello M.D. 07264 850.9 250.00 272.2 Office Visit 08/13/2011 3:00p Main Office Elvis Coello M.D. 11201 723.1 850.9 Office Visit 06/09/2011 10:15a Main Office Elvis Coello M.D. 42746 414.01 401.1 272.2 250.00 V04.81 Office Visit 02/06/2011 9:00a Main Office Elvis Coello M.D. 62488 462 Office Visit 02/04/2011 10:15a Main Office Elvis Coello M.D. 78462 414.01 401.1 272.2 250.00 600.20 Office Visit 10/09/2010 10:45a Main Office Elvis Coello M.D. 23216 414.01 401.1 272.2 250.00 327.23 Office Visit 11/21/2009 3:45p Main Office Elvis Coello M.D. 25347 414.01 250.00 272.2 401.1 719.46 Office Visit 09/10/2009 10:00a Main Office Elvis Coello M.D. 64361 461.8 V03.82 Office Visit 08/27/2009 11:30a Main Office Elvis Coello M.D. 11068 079.99 401.1 272.2 250.00 Office Visit 05/23/2009 1:15p Main Office Elvis Coello M.D. 76291 414.01 401.1 272.2 250.00 V04.81 Office Visit 02/01/2009 10:45a Main Office Elvis Coello M.D. 98374 272.2 250.00 401.1 414.01 Office Visit 10/23/2008 10:00a Main Office Elvis Coello M.D. 20036 719.46 250.00 401.1 272.2 414.01 Office Visit 06/07/2007 2:20p Main Office Pricilla Jaeger R.N.,F.N.P. 53460 682.9 Office Visit 02/23/2007 2:30p Main Office Emre Real M.D. 60682 401.1 272.2 250.00 530.11 414.01 Office Visit 10/26/2006 3:20p Main Office Pricilla Jaeger R.N.,F.N.P. 38191 401.1 250.00 272.2 530.11 Office Visit 06/29/2006 3:00p Main Office Pricilla Jaeger R.N.,F.N.P. 31754 401.1 272.2 250.00 414.01 Office Visit 03/30/2005 1:45p Main Office Emre Real M.D. 85894 401.1 272.2 250.00 414.01 530.11 Office Visit 12/18/2004 2:30p Main Office Emre Real M.D. 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
--- NOTE | 2017-09-05 13:48 | UC ---
Respiratory Complaint HPI - HPI Summary HPI Summary: 82 yo male with cough/congestion/runny nose and sore throat x 5 days suspects he has been feverish no chills no n/v/d no myalgias - History of Current Complaint Chief Complaint: UCGeneralIllness Stated Complaint: COUGH, SORE THROAT Time Seen by Provider: 09/05/17 13:20 Hx Obtained From: Patient Onset/Duration: Gradual Onset, Lasting Days Timing: Constant Severity Initially: Moderate Severity Currently: Moderate Pain Intensity: 3 Pain Scale Used: 0-10 Numeric Character: Cough: Nonproductive Aggravating Factors: Nothing Alleviating Factors: Nothing Associated Signs And Symptoms: Positive: Fever - robert, Chills, URI, Nasal Congestion - Allergies/Home Medications Allergies/Adverse Reactions: Allergies Allergy/AdvReac Type Severity Reaction Status Date / Time Niacin Allergy Flushing Verified 09/05/17 12:43 PMH/Surg Hx/FS Hx/Imm Hx Previously Healthy: Yes Cardiovascular History: Cardiac Disease, Hypertension Respiratory History: Bronchitis, Pneumonia - Surgical History Surgical History: Yes Surgery Procedure, Year, and Place: 13 stents (Cardiac cath x2), triple bypass - Family History Known Family History: Positive: Cardiac Disease, Hypertension, Diabetes - Social History Alcohol Use: None Substance Use Type: None Smoking Status (MU): Never Smoked Tobacco Review of Systems Constitutional: Fever Skin: Negative Eyes: Negative ENT: Sore Throat, Nasal Discharge, Sinus Congestion Respiratory: Cough Cardiovascular: Negative Gastrointestinal: Negative Genitourinary: Negative Motor: Negative Neurovascular: Negative Musculoskeletal: Negative Neurological: Negative Psychological: Negative Is Patient Immunocompromised?: No All Other Systems Reviewed And Are Negative: Yes Physical Exam Triage Information Reviewed: Yes Appearance: Well-Appearing, No Pain Distress, Well-Nourished Vital Signs: Initial Vital Signs Temp 98.1 F 09/05/17 12:40 Pulse 78 09/05/17 12:40 Resp 14 09/05/17 12:40 BP 132/56 09/05/17 12:40 Pulse Ox 96 09/05/17 12:40 Vital Signs Reviewed: Yes Eyes: Positive: Conjunctiva Clear ENT: Positive: Hearing grossly normal, Pharyngeal erythema, Nasal congestion, Hoarse voice, Uvula midline. Negative: Tonsillar swelling, Tonsillar exudate, Trismus, Muffled voice Neck: Positive: Supple, Nontender, No Lymphadenopathy Respiratory: Positive: No respiratory distress, No accessory muscle use, Rhonchi Cardiovascular: Positive: RRR, No Murmur Musculoskeletal: Positive: ROM Intact, No Edema Neurological: Positive: Alert Psychological Exam: Normal Skin Exam: Normal UC Diagnostic Evaluation - Laboratory O2 Sat by Pulse Oximetry: 96 - normal/not hypoxic - Radiology Xray Interpretation: No Acute Changes Radiology Interpretation Completed By: Radiologist Respiratory Course/Dx - Differential Dx/Diagnosis Provider Diagnoses: acute bronchitis. acute pharyngitis Discharge - Discharge Plan Condition: Stable Disposition: HOME Prescriptions: Amoxicillin PO (*) [Amoxicillin 875 MG (*)] 875 mg PO BID #20 tab Benzonatate CAP* [Tessalon CAP*] 100 - 200 mg PO TID PRN #28 cap PRN Reason: Cough Patient Education Materials: Pharyngitis (ED), Acute Bronchitis (ED) Referrals: Elvis Kwok MD [Primary Care Provider] - 4 Days (if not better) Additional Instructions: recheck for new or worsening symptoms
--- NOTE | 2017-09-05 14:21 | RAD ---
INDICATION: Cough and congestion COMPARISON: None TECHNIQUE: PA and lateral views of the chest were obtained. FINDINGS: Postsurgical changes include sternotomy wires and surgical clips in the anterior mediastinum. The heart and mediastinum are normal in size and contour. The lungs are grossly clear. There is no evidence of large pleural effusion. Visualized bones are normal for the patient's age. There is no radiographic evidence of free air beneath the diaphragm IMPRESSION: No radiographic evidence of acute cardiopulmonary disease.
== END 2017-09-05 14:36 | disposition home or self-care (01) ==
LOC: UCCORT 11:59
DX: J20.9 Acute bronchitis, unspecified (principal); J02.9 Acute pharyngitis, unspecified; I10 Essential (primary) hypertension; Z88.8 Allergy status to other drugs, medicaments and biological substances
CPT/HCPCS: 71020; 99212; G0463

== ENCOUNTER 2019-07-25 11:49 | Emergency (ER) | payer MEDICARE, BC ==
[2019-07-25 12:09] VITALS: BP 134/60
--- NOTE | 2019-07-25 12:34 | UC ---
Cardiac HPI - HPI Summary HPI Summary: 84-year-old male comes in with chief complaint of chest pain. Patient slipped and fell on the ice in his driveway on July 21, 2019. He fell backwards striking his head and his upper thoracic area. No loss of consciousness. Continues to have headache and upper posterior back pain. One day after the fall he started developing anterior chest pain. Is in the sternal region. Patient's had multiple cardiac stents. Is concerned for the possibility of a cardiac problem. His shoulders hurt more with activity. He is on Plavix. Has not had any focal neurologic deficits. 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 Recent chest pain about a 5 out of 10 at its variable. - History of Current Complaint Chief Complaint: UCChestPain Stated Complaint: SHOULDER/CHEST PAIN S/P FALL Time Seen by Provider: 07/25/19 11:54 Pain Intensity: 4 - Allergy/Home Medications Allergies/Adverse Reactions: Allergies Allergy/AdvReac Type Severity Reaction Status Date / Time niacin Allergy Intermediate Flushing Verified 07/25/19 11:57 Home Medications: Home Medications Empaglifozin (NF) [Jardiance] 25 mg PO DAILY 07/25/19 [History Confirmed ] PMH/Surg Hx/FS Hx/Imm Hx Previously Healthy: Yes Endocrine History: Dyslipidemia Cardiovascular History: Cardiac Disease, Hypertension - Surgical History Surgical History: Yes Surgery Procedure, Year, and Place: FROM 1994 TO 2017 13 stents (Cardiac cath x2 ) PUT IN. 1994 -1995 triple bypass. 2015 APENDECTOMY. 2007 HERNIA. 2013 [facility] CATERACT SURGERY - Family History Known Family History: Positive: None, Cardiac Disease, Hypertension, Diabetes - Social History Alcohol Use: None Substance Use Type: None Smoking Status (MU): Never Smoked Tobacco Review of Systems All Other Systems Reviewed And Are Negative: Yes Constitutional: Positive: Other - SEE HPI Skin: Positive: Negative Eyes: Positive: Negative ENT: Positive: Negative Respiratory: Positive: Negative Cardiovascular: Positive: Chest Pain Gastrointestinal: Positive: Negative Motor: Positive: Negative Neurovascular: Positive: Negative Musculoskeletal: Positive: Other: - SEE HPI Neurological: Positive: Headache Psychological: Positive: Negative Is Patient Immunocompromised?: No Physical Exam Triage Information Reviewed: Yes Appearance: No Pain Distress, Well-Nourished, Ill-Appearing - FRAIL Vital Signs: Initial Vital Signs Temp 97.8 F 07/25/19 11:59 Pulse 65 07/25/19 11:59 Resp 18 07/25/19 11:59 BP 134/60 07/25/19 11:59 Pulse Ox 98 07/25/19 11:59 Vital Signs Reviewed: Yes Eye Exam: Normal Eyes: Positive: Conjunctiva Clear Respiratory: Positive: Lungs clear, Normal breath sounds, No respiratory distress Cardiovascular: Positive: RRR Musculoskeletal: Positive: ROM Intact Neurological: Positive: Alert Psychological: Positive: Age Appropriate Behavior Skin Exam: Normal Diagnostics - EKG Cardiac Rate: NL - At 11:55 AM Cardiac Rhythm: Sinus: Normal - 66 beats minute Ectopy: None ST Segment: Normal - Right bundle branch block - Assessment/Plan Course Of Treatment: I discussed the EKG with the patient and his . I do not see ischemic changes at this time. I do not have any old EKG to compare to. Given the patient's concern of the possibility of a cardiac problem recommended further evaluation emergency Department. He prefers to go by POV. Vital signs are stable here in clinic. - Clinical Impression Provider Diagnosis: Chest pain, Head injury, Thoracic back pain Discharge ED - Sign-Out/Discharge Documenting (check all that apply): Patient Departure All imaging exams completed and their final reports reviewed: No Studies - Discharge Plan Condition: Stable Disposition: HOME-RECOMMEND TO ED Patient Education Materials: Chest Pain (ED), Head Injury (ED), Thoracic Pain ( ED) Referrals: Elvis Kwok MD [Primary Care Provider] - Additional Instructions: GO DIRECTLY TO THE EMERGENCY DEPARTMENT FOR FURTHER EVALUATION AND CARE OF YOUR CHEST PAIN, HEAD AND BACK INJURIES. - Billing Disposition and Condition Condition: STABLE Disposition: Home-Recommend to ED
--- OUTSIDE RECORDS SUMMARY | 2019-07-25 12:39 | XMS REPORT | Continuity of Care Document ---
:1935 External Reference #:[id number] Author Name Rani Romero, Address [address], [address] [place] [address] Care Team Providers Name Role Phone Elvis Kwok M.D. - Internal Care Team Information Brush Worker Medicine Suraj Gipson MD - Care Team Information Brush Worker [phone] Ophthalmology Problems Active Problems Provider Date Type II diabetes mellitus uncontrolled Diego Low MD Onset: 2010 Arteriosclerosis of arterial coronary artery Diego Low MD Onset: bypass graft Cellulitis and abscess of toe Suraj Luong DPM Onset: 12/20/2012 Social History Type Date Description Comments Sex Unknown Cigarette Use Denies Cigarette Use ETOH Use Denies alcohol use Recreational Drug Use Denies Drug Use Tobacco Use Start: Unknown Patient has never smoked Smoking Status Reviewed: 04/28/18 Patient has never smoked Allergies, Adverse Reactions, Alerts Description No Known Drug Allergies Medications Active Medications SIG Qnty Indications Ordering Date Provider Novolog given SQ tid with 6vials Tena A 04/08/2017 meals, max daily dose Camargo, RESEARCH AND DEVELOPMENT CHEMIST 100Unit/ML is 60 units Solution Pen [place] /" to use with humalog 200units E11.65 Diego Jovel 12/02/2016 pen and lantus pen MD Devante 30G X 8 mm Misc Onetouch Ultra Use as Directed 5 300units E11.65 Diego Jovel 01/24/2016 Blue Times A Day MD Devante Strips Plavix 1 tab po q day Diego Jovel 03/19/2011 75mg MD Devante Tablets Lipitor 1 tab po q day E78.0 Diego Jovel 03/19/2011 20mg MD Devante Tablets Lexapro 1 tab po q day Diego V. 03/19/2011 20mg MD Devante Tablets Metoprolol 2 tabs po q day I10 Diego V. 03/19/2011 25mg MD Devante Tab Micardis 1 tab po q day I10 Diego V. 03/19/2011 40mg MD Devante Tablets Nitroquick prn Unknown 0.4mg Tablets Sub Aspir-81 1 by mouth every day Unknown 81mg Tablets DR Keane Inject 32 Units 30units E11.65 Diego V. 100Unit/ML Subcutaneously AT MD Devante Solution Bedtime Jardiance 1 by mouth every day Unknown 25mg Tablets Immunizations CPT Code Status Date Vaccine Lot # [id number] Given 07/02/2017 Influenza High Dose Preservative Free 65yrs & up Vital Signs Date Vital Result Comment 07/06/2019 10:49am Weight 190.38 lb Weight 86.354 kg BMI (Body Mass Index) 38.4 kg/m2 BP Systolic 118 mmHg BP Diastolic 76 mmHg Heart Rate 76 /min Height 59 inches 4'11" Height in cm's 149.9 cm 04/28/2018 2:25pm Weight 199.38 lb Weight 90.436 kg BMI (Body Mass Index) 31.2 kg/m2 BP Systolic 126 mmHg BP Diastolic 68 mmHg Heart Rate 72 /min Respiratory Rate 18 /min Height 67 inches 5'7" Height in cm's 170.2 cm Hemoglobin A1C 7.3% done in office today Results Test Acquired Date Facility Test Result H/L Range Note Laboratory test 07/10/2019 [facility] Urine Total 1600 mL finding [address] [place] [address] [phone] 24HR Ur Prot 07/10/2019 [facility] Protein,Tot 16.2 mg/dL Not Estab. Elect @ [address] [place] [address],[place] [address] [phone] Prot,24hr calculated 259 mg/24hr High 30-150 Albumin, U 30.7 % Obkma-6-Atrirkmo, U 3.8 % Pcwxw-2-Vhbitcpn, U 18.5 % Beta Globulin, U 28.1 % Gamma Globulin, U 19.0 % M-Pino, % Not Observed % Not Observed Please note: Comment L 1 PDF . L Laboratory test finding 07/06/2019 [facility] A1c 7.6 % High 4.8-6.[address] [place] [address] [phone] Folate & B-12 07/06/2019 [facility] Folate 17.3 ng/mL 3.1-20.[address] [place] [address] [phone] Vitamin B12 395 pg/mL [phone] Laboratory test 07/06/2019 [facility] Vitamin B6 [So] 7.6 ug/L 5.3-46.[address] [place] [address] [phone] Vitamin B1 Whole BLD [So] 114.9 nmol/L 66.5-200.0 3 Vit D 25 Hydroxy 25 NG/ML Low 30-95 4 Serum Prot Elect 07/06/2019 [facility] Protein, Total, 6.8 g/dL 6.0-8.5 @ [address] [place] [address] [phone] Albumin 4.0 g/dL 2.9-4.4 Bsosv-3-Shotsfdh 0.2 g/dL 0.0-0.4 Enjyh-1-Hlithjec 0.9 g/dL 0.4-1.0 Beta Globulin 1.0 g/dL 0.7-1.3 Gamma Globulin 0.8 g/dL 0.4-1.8 M-Pino Not Observed g/dL Not Observed Globulin, Total 2.8 g/dL 2.2-3.9 A/G Ratio 1.4 L 0.7-1.7 Please note: Comment L 5 PDF . L Laboratory test finding 07/06/2019 [facility] TSH 5.12 uIU/mL High 0.34- 4.[address] [place] [address] [phone] T4 - Free 0.79 ng/dL 0.77-1.60 Comprehensive Panel 07/06/2019 [facility] Sodium 140 mmol/L 136-[address] [place] [address] [phone] Potassium 5.4 mmol/L High 3.5-5.2 Chloride 103 mmol/L 100-108 Co2 28 mmol/L 21-32 Glucose 210 mg/dL High 70-100 BUN 22 mg/dL High 7-21 Creatinine 1.1 mg/dL 0.6-1.3 6 Calcium 9.8 mg/dL 8.5-10.8 GFR >60 T Bili 1.1 mg/dL 0.0-1.2 T Protein 7.0 gm/dL 6.4-8.2 Albumin 4.3 gm/dL 3.2-4.6 Alk Phos 84 U/L 40-150 Alt (SGPT) <10 U/L 0-55 Ast (Sgot) 23 U/L 5-37 Xray 07/06/2019 [facility]iology Scheduling 3 Letty MRI brain with and 8am - 11am [address] without contrast [place], [place] [id number] [phone] 1 Protein electrophoresis scan will follow via computer, mail, or child care supervisor delivery. 2 Specimen Comment: Test(s) 679515-Nkoacqf B6 Specimen Comment: was developed and its performance characteristics determined Specimen Comment: by [email or web address]. It has not been cleared or approved by the Food Specimen Comment: and Drug Administration. 3 Specimen Comment: Test(s) 941188-Uet. B1, Whole Blood Specimen Comment: was developed and its performance characteristics determined Specimen Comment: by [employer]. It has not been cleared or approved by the Food Specimen Comment: and Drug Administration. 4 VITAMIN D STATUS VITAMIN D Level DEFICIENCY <20 NG/ML INSUFFICIENCY 20-30 NG/ML SUFFICIENCY 31-96 NG/ML POTENTIAL TOXICITY >96 NG/ML 5 Protein electrophoresis scan will follow via computer, mail, or child care supervisor delivery. 6 Normal Kidney Function or Mild Disease - GFR >OR= 60 Chronic Kidney Disease - GFR 15-59 Renal Failure - GFR < 15 GFR not calculated on patients under 18 years of age. Procedures Description No Information Available Medical Devices Description No Information Available Encounters Description No Information Available Assessments Date Code Description Provider 07/06/2019 E11.40 Type 2 diabetes mellitus with diabetic Rani Romero, neuropathy, unspecified 07/06/2019 R20.2 Paresthesia of skin Rani Romero, DO 07/06/2019 M54.2 Cervicalgia Rani Romero, 07/06/2019 R51 Headache Rani Romero, DO 07/06/2019 G44.309 Post-traumatic headache, unspecified, not Rani Romero, DO intractable Plan of Treatment 07/06/2019 - Rani Romero DOE11.40 Type 2 diabetes mellitus with diabetic neuropathy, unspecifiedComments:I will order bloodwork to evaluate for reversible metabolic and nutritional causes of neuropathy. Heshould keep strict control of blood glucose.R20.2 Paresthesia of skinM54.2 CervicalgiaNew Xrays: MRI Spine Cervical W/O & W/Contrast, Scheduled: 07/17/19R51 HeadacheNew Xrays:3 Letty MRI brain with and without contrast, Scheduled: 07/17/19Comments: I will order an MRI of the brain to evaluate for any structural causes of his headaches. He should also reduce his use of ibuprofen and any other over the counter medications to less than twice per week to avoid medication overuse headache.Other headache hygiene reviewed, including getting adequate sleep, adequate hydration, avoiding hypoglycemia, keeping stress level under control, and getting regular exercise.G44.309 Post-traumatic headache, unspecified, not intractableAllFollow up:MRI brain and C spine- needs open MRI- [facility]? Labwork Follow up after testing Also need records - MRI in [place] and Dr. Rasmussen records. Functional Status Functional Condition Comment Date Status Hearing Aid in Both ears Active Mental Status Description No Information Available Referrals Description No Information Available
--- OUTSIDE RECORDS SUMMARY | 2019-07-25 12:39 | XMS REPORT | Continuity of Care Document ---
:1935 Author Organization [facility] Care Team Providers Name Role Phone LORENZO FAY Primary Care Physician Allergies and Intolerances Code Code Allergy Type Reaction Severity Start End Date Status System Substance Date 886530 RXNorm [facility] Drug Severe 02/20/20 Inactive allergy 3 14 (disorder) Medications RxNorm Medication Dose Route Instructions Start End Status Date Date 1191 Aspirin 81 mg oral orally every day Active 385945 atorvastatin 20 20 mg oral orally every day Active MG Oral Tablet 304268 clopidogrel 75 MG 75 mg oral orally every day Active Oral Tablet 836034 Escitalopram 20 20 mg oral orally every day Active MG Oral Tablet 4278 Famotidine 20 mg oral orally every day Active 959111 Finasteride 5 MG 5 mg oral orally every day Active Oral Tablet 398496 Insulin Glargine 35 unit subcutaneous subcutaneously Active 100 UNT/ML every day at Injectable bedtime Solution 21489 Insulin Lispro 7-10 subcutaneous subcutaneously 3 Active unit times per day ( administer within 15 minutes before a meal/snack and no later than immediately following the meal/snack) 608255 Metoprolol 25 mg oral orally 2 times per Active Tartrate 25 MG day Oral Tablet 246155 Nitroglycerin 0.4 0.4 mg sublingual sublingually every Active MG Sublingual 5 minutes as Tablet needed. ( do not exceed 3 tablets in 15 minutes; call md if still symptomatic after 3 rd dose) 503311 telmisartan 40 MG 40 mg oral orally every day Active Oral Tablet Medications At Time Of Discharge RxNorm Medication Dose Route Instructions Start End Status Date Date 1191 Aspirin 81 mg oral orally every day Active 172842 atorvastatin 20 20 mg oral orally every day Active MG Oral Tablet 201136 clopidogrel 75 MG 75 mg oral orally every day Active Oral Tablet 071615 Escitalopram 20 20 mg oral orally every day Active MG Oral Tablet 4278 Famotidine 20 mg oral orally every day Active 033896 Finasteride 5 MG 5 mg oral orally every day Active Oral Tablet 321574 Insulin Glargine 35 unit subcutaneous subcutaneously Active 100 UNT/ML every day at Injectable bedtime Solution 31288 Insulin Lispro 7-10 subcutaneous subcutaneously 3 Active unit times per day ( administer within 15 minutes before a meal/snack and no later than immediately following the meal/snack) 209267 Metoprolol 25 mg oral orally 2 times per Active Tartrate 25 MG day Oral Tablet 733955 Nitroglycerin 0.4 0.4 mg sublingual sublingually every Active MG Sublingual 5 minutes as Tablet needed. ( do not exceed 3 tablets in 15 minutes; call md if still symptomatic after 3 rd dose) 831835 telmisartan 40 MG 40 mg oral orally every day Active Oral Tablet Problems Code Code System Problem Name Start Date End Date Status 15981698 SNOMED-CT Hyperglycemia 08/21/2013 U Active 55169614 SNOMED-CT Chest pain 08/21/2013 U Active 78243744 SNOMED-CT Closed fracture of one rib 07/13/2013 U Active CABG x 3 2003 U Active 22930273 SNOMED-CT Heart murmur U Completed 12463427 SNOMED-CT Heart disease U Active 10767728 SNOMED-CT Hypertensive disorder U Active 00034253 SNOMED-CT Hypercholesterolemia U Active 27561635 SNOMED-CT Diabetes mellitus U Active 240924772 SNOMED-CT Backache U Active 796528261 SNOMED-CT Benign prostatic hyperplasia U Active 10881600 SNOMED-CT Diabetes mellitus type 2 U U Active 40241913 SNOMED-CT Hypertensive disorder U U Active 06596596 SNOMED-CT Hyperlipidemia U U Active 04559699 SNOMED-CT Right bundle branch block U U Active 377748309 SNOMED-CT Benign prostatic hyperplasia U U Active 987617058 SNOMED-CT Poorly controlled type 2 DM U U Active 263167971 SNOMED-CT Stented coronary artery U U Active 66765388 SNOMED-CT Fracture of vertebral column U U Active 434673033 SNOMED-CT Chronic back pain U U Active 689496624 SNOMED-CT Cataract U Active 592854120 SNOMED-CT Malignant neoplasm of skin U Active Procedures Code Code System Procedure Date 5999654 SNOMED CT Open heart surgery [address] Coronary artery bypass graft 2002 CARDIAC STENT 2002 CARDIAC CATH X5 WITH STENTS U Results Laboratory Results Order: URINE TOTAL VOLUME Specimen Source : Body Site: Legend: (G,H) = High, (GG,HH,CH,#H) = Above High Threshold, (#,L) = Low, (##,CL,#L,LL) = Below Low Threshold, (C,CC,CA,#A,A) = Abnormal LOINC Test Result Flag Range Units Date 91252-2 1Specimen vol Ur 1600 mL 07/10/2019 08:00 Performing Lab Footnotes:[facility] - [id number] - [address] [place] [address] [place] [facility] Laboratory Results Order: PROTEIN ELECT, 24 HR UR @ [SO] Specimen Source: Body Site: LOINC Code Test Result Flag Range Units Date 2888-02 1Protein 16.2 Not Estab. mg/dL 07/10/2019 8:00:00 AM 2889-4 1Protein 259 H 30-150 mg/24 hr 07/10/2019 8:00:00 AM 03377-8 1Albumin/Protein. 30.7 % 07/10/2019 total 8:00:00 AM 39500-6 1Alpha 1 3.8 % 07/10/2019 globulin/Protein. 8:00:00 AM total 71536-0 1Alpha 2 18.5 % 07/10/2019 globulin/Protein. 8:00:00 AM total 83302-7 1Beta 28.1 % 07/10/2019 globulin/Protein. 8:00:00 AM total 16847-7 1Gamma 19.0 % 07/10/2019 globulin/Protein. 8:00:00 AM total 57072-9 1Protein.monoclon Not Observed Not Observed % 07/10/2019 al/Protein.tot 8:00:00 AM 31128-0 1Laboratory Comment 07/10/2019 comment 8:00:00 AM Note: Protein electrophoresis scan will follow via computer, mail, or protective officer delivery. 29019-7 1Laboratory report . 07/10/2019 8:00:00 AM Performing Lab Footnotes:[facility] - [address] [place], [place] [id number] DUONG B REYES1 Social History Code Code System Social History Observation Description Dates Observed 397578636 SNOMED CT Current Smoking Status Never smoker UNK AdministrativeGender Sex Assigned At Unknown Vital Signs No data in the system Goals Section No data in the system Health Concerns No data in the systemEncounter Diagnosis Date Code Code System Diagnosis Status R20.2 ICD10 PARESTHESIA OF SKIN Active Advance Directives *RHIO - CONSENT IS YES Directive Type Effective Date Vacation Planner Notes Supporting Document Name Address Phone No Directive Type 05/27/2015 8:31:55 Not Specified Not Specified Not Specified None No specified AM PT STATES NO ADVANCE DIRECTIVES Directive Type Effective Date Vacation Planner Notes Supporting Document Name Address Phone No Directive Type 03/05/2014 9:00:00 Not Specified Not Specified Not Specified None No specified AM Encounters Encounter Diagnosis Location Date PARESTHESIA OF SKIN [facility] 07/10/2019 Family History No Significant Family History Functional Status No data in the system Immunizations Vaccine Code Code System Vaccine Name Date Status UTD Completed Medical Equipment No data in the system Mental Status No data in the system Assessment and Plan Assessments No data in the systemPlan Of Treatment No data in the systemPending Tests No data in the system Hospital Discharge Instructions No data in the system Reason for Visit No data in the system
--- OUTSIDE RECORDS SUMMARY | 2019-07-25 12:39 | XMS REPORT | Continuity of Care Document ---
:1935 Author Organization [facility] Care Team Providers Name Role Phone LORENZO FAY Primary Care Physician Allergies and Intolerances Code Code Allergy Type Reaction Severity Start End Date Status System Substance Date 972768 RXNorm [facility] Drug Severe 02/20/20 Inactive allergy 3 14 (disorder) Medications RxNorm Medication Dose Route Instructions Start End Status Date Date 1191 Aspirin 81 mg oral orally every day Active 147401 atorvastatin 20 20 mg oral orally every day Active MG Oral Tablet 505584 clopidogrel 75 MG 75 mg oral orally every day Active Oral Tablet 372949 Escitalopram 20 20 mg oral orally every day Active MG Oral Tablet 4278 Famotidine 20 mg oral orally every day Active 400205 Finasteride 5 MG 5 mg oral orally every day Active Oral Tablet 560567 Insulin Glargine 35 unit subcutaneous subcutaneously Active 100 UNT/ML every day at Injectable bedtime Solution 21368 Insulin Lispro 7-10 subcutaneous subcutaneously 3 Active unit times per day ( administer within 15 minutes before a meal/snack and no later than immediately following the meal/snack) 566193 Metoprolol 25 mg oral orally 2 times per Active Tartrate 25 MG day Oral Tablet 976989 Nitroglycerin 0.4 0.4 mg sublingual sublingually every Active MG Sublingual 5 minutes as Tablet needed. ( do not exceed 3 tablets in 15 minutes; call md if still symptomatic after 3 rd dose) 729642 telmisartan 40 MG 40 mg oral orally every day Active Oral Tablet Medications At Time Of Discharge RxNorm Medication Dose Route Instructions Start End Status Date Date 1191 Aspirin 81 mg oral orally every day Active 647639 atorvastatin 20 20 mg oral orally every day Active MG Oral Tablet 579739 clopidogrel 75 MG 75 mg oral orally every day Active Oral Tablet 281478 Escitalopram 20 20 mg oral orally every day Active MG Oral Tablet 4278 Famotidine 20 mg oral orally every day Active 204923 Finasteride 5 MG 5 mg oral orally every day Active Oral Tablet 925520 Insulin Glargine 35 unit subcutaneous subcutaneously Active 100 UNT/ML every day at Injectable bedtime Solution 72184 Insulin Lispro 7-10 subcutaneous subcutaneously 3 Active unit times per day ( administer within 15 minutes before a meal/snack and no later than immediately following the meal/snack) 341208 Metoprolol 25 mg oral orally 2 times per Active Tartrate 25 MG day Oral Tablet 623142 Nitroglycerin 0.4 0.4 mg sublingual sublingually every Active MG Sublingual 5 minutes as Tablet needed. ( do not exceed 3 tablets in 15 minutes; call md if still symptomatic after 3 rd dose) 101613 telmisartan 40 MG 40 mg oral orally every day Active Oral Tablet Problems Code Code System Problem Name Start Date End Date Status 82258804 SNOMED-CT Hyperglycemia 08/21/2013 U Active 51819135 SNOMED-CT Chest pain 08/21/2013 U Active 33976502 SNOMED-CT Closed fracture of one rib 07/13/2013 U Active CABG x 3 2003 U Active 75404646 SNOMED-CT Heart murmur U Completed 70417910 SNOMED-CT Heart disease U Active 53676493 SNOMED-CT Hypertensive disorder U Active 37978450 SNOMED-CT Hypercholesterolemia U Active 23288546 SNOMED-CT Diabetes mellitus U Active 803176365 SNOMED-CT Backache U Active 133741187 SNOMED-CT Benign prostatic hyperplasia U Active 34915483 SNOMED-CT Diabetes mellitus type 2 U U Active 04875530 SNOMED-CT Hypertensive disorder U U Active 22815661 SNOMED-CT Hyperlipidemia U U Active 82572269 SNOMED-CT Right bundle branch block U U Active 353514605 SNOMED-CT Benign prostatic hyperplasia U U Active 038485298 SNOMED-CT Poorly controlled type 2 DM U U Active 787966999 SNOMED-CT Stented coronary artery U U Active 65341189 SNOMED-CT Fracture of vertebral column U U Active 916236590 SNOMED-CT Chronic back pain U U Active 322888974 SNOMED-CT Cataract U Active 247575227 SNOMED-CT Malignant neoplasm of skin U Active Procedures Code Code System Procedure Date 8057045 SNOMED CT Open heart surgery [address] Coronary artery bypass graft 2002 CARDIAC STENT 2002 CARDIAC CATH X5 WITH STENTS U Results Laboratory Results Order: A1C Specimen Source: Body Site: Legend: (G,H) = High, (GG,HH,CH,#H) = Above High Threshold, (#,L) = Low, (##,CL, #L,LL) = Below Low Threshold, (C,CC,CA,#A,A) = Abnormal LOINC Test Result Flag Range Units Date 06286-7 1Hgb A1c Bld 7.6 H 4.8-6.0 % 07/06/2019 13:42 Performing Lab Footnotes:[facility] [place] [facility] - [id number] - [address] [place] [address] [place] [email or web address] Order: COMPREHENSIVE PANEL Specimen Source: Body Site: Legend: (G,H) = High, (GG,HH,CH,#H) = Above High Threshold, (#,L) = Low, (##,CL,#L,LL) = Below Low Threshold, (C,CC,CA,#A,A) = Abnormal LOINC Test Result Flag Range Units Date 2951-2 1Sodium SerPl-sCnc 140 136-145 mmol/L 07/06/2019 13:42 2823-3 1Potassium SerPl-sCnc 5.4 H 3.5-5.2 mmol/L 07/06/2019 13:42 5-0 1Chloride SerPl-sCnc 103 100-108 mmol/L 07/06/2019 13:42 8-9 1CO2 SerPl-sCnc 28 21-32 mmol/L 07/06/2019 13:42 5-7 1Glucose SerPl-mCnc 210 H 70-100 mg/dL 07/06/2019 13:42 3094-0 1BUN SerPl-mCnc 22 H 7-21 mg/dL 07/06/2019 13:42 2160-0 1Creat SerPl-mCnc 1.1 0.6-1.3 mg/dL 07/06/2019 13:42 Interpretive Neema: 1Normal Kidney Function or Mild Disease - GFR >OR= 60 Chronic Kidney Disease - GFR 15-59 Renal Failure - GFR < 15 GFR not calculated on patients under 18 years of age. Calculated (estimated) GFR is based on the MDRD Study equation, which assumes a steady state for creatinine. Estimated GFR may not be appropriate for medication dosing. 82951-8 1Ca-I SerPl-mCnc 9.8 8.5-10.8 mg/dL 07/06/2019 13:42 70686-4 1GFR/BSA.pred SerPl-ArVRat >60 07/06/2019 13:42 52342-6 1Bilirub Bld-mCnc 1.1 0.0-1.2 mg/dL 07/06/2019 13:42 2885-2 1Prot SerPl-mCnc 7.0 6.4-8.2 gm/dL 07/06/2019 13:42 1751-7 1Albumin SerPl-mCnc 4.3 3.2-4.6 gm/dL 07/06/2019 13:42 6768-6 1ALP SerPl-cCnc 84 40-150 U/L 07/06/2019 13:42 1742-6 1ALT SerPl-cCnc <10 0-55 U/L 07/06/2019 13:42 1920-8 1AST SerPl-cCnc 23 5-37 U/L 07/06/2019 13:42 Performing Lab Footnotes:[facility] [place] [facility] - [id number] - [address] [place] [address] [place] Order: FOLATE B-12 Specimen Source: Body Site: Legend: (G,H) = High, ( GG,HH,CH,#H) = Above High Threshold, (#,L) = Low, (##,CL,#L,LL) = Below Low Threshold, (C,CC,CA,#A,A) = Abnormal LOINC Test Result Flag Range Units Date 2284-8 1Folate SerPl-mCnc 17.3 3.1-20.0 ng/mL 07/06/2019 13:42 2132-9 1Vit B12 SerPl-mCnc 125 986-0438 pg/mL 07/06/2019 13:42 Performing Lab Footnotes:[facility] [place] [facility] - [id number] [place] [address] [place] Order: T4 - FREE Specimen Source: Body Site: Legend: (G,H) = High, (GG, HH,CH,#H) = Above High Threshold, (#,L) = Low, (##,CL,#L,LL) = Below Low Threshold, (C,CC,CA,#A,A) = Abnormal LOINC Test Result Flag Range Units Date 3024-7 1T4 Free SerPl-mCnc 0.79 0.77-1.60 ng/dL 07/06/2019 13:42 Performing Lab Footnotes:[facility] [place] [facility] - [id number] - [address] [place] [address] PB [id number] Order: TSH Specimen Source: Body Site: Legend: (G,H) = High, (GG,HH,CH, #H) = Above High Threshold, (#,L) = Low, (##,CL,#L,LL) = Below Low Threshold, (C ,CC,CA,#A,A) = Abnormal LOINC Test Result Flag Range Units Date 3016-3 1TSH SerPl-aCnc 5.12 H 0.34-4.82 uIU/mL 07/06/2019 13:42 Performing Lab Footnotes:[facility] [place] [facility] - [id number] - [address] [place] [address] [place] Order: VIT D 25 HYDROXY Specimen Source: Body Site: Legend: (G,H) = High, (GG,HH,CH,#H) = Above High Threshold, (#,L) = Low, (##,CL,#L,LL) = Below Low Threshold, (C,CC,CA,#A,A) = Abnormal LOINC Test Result Flag Range Units Date 06737-1 1Vit D+metab SerPl-mCnc 25 L 30-95 NG/ML 07/06/2019 13:42 Interpretive 1VITAMIN D STATUS VITAMIN D Level Neema: DEFICIENCY <20 NG/ML INSUFFICIENCY 20-30 NG/ML SUFFICIENCY 31-96 NG/ML POTENTIAL TOXICITY >96 NG/ML Performing Lab Footnotes:[facility] [place] [facility] - [id number] - [address] [place] [address] PB [id number] Reference Laboratory Results Order: SERUM PROT ELECT @ (3 Days to Results) Specimen Source: Body Site: LOINC Code Test Result Flag Range Units Date 2885-2 1Protein 6.8 6.0-8.5 g/dL 07/06/2019 1:42:00 PM 2862-1 1Albumin 4.0 2.9-4.4 g/dL 07/06/2019 1:42:00 PM 2865-4 1Alpha 1 globulin 0.2 0.0-0.4 g/dL 07/06/2019 1:42:00 PM 2868-8 1Alpha 2 globulin 0.9 0.4-1.0 g/dL 07/06/2019 1:42:00 PM 2871-2 1Beta globulin 1.0 0.7-1.3 g/dL 07/06/2019 1:42:00 PM 2874-6 1Gamma globulin 0.8 0.4-1.8 g/dL 07/06/2019 1:42:00 PM 67077-9 1Protein.monoclona Not Observed Not Observed g/dL 07/06/2019 l 1:42:00 PM 43122-8 1Globulin 2.8 2.2-3.9 g/dL 07/06/2019 1:42:00 PM 1759-0 1Albumin/Globulin 1.4 0.7-1.7 07/06/2019 1:42:00 PM 60904-5 1Laboratory Comment 07/06/2019 comment 1:42:00 PM Note: Protein electrophoresis scan will follow via computer, mail, or timber hand delivery. 85895-3 1Laboratory report . 07/06/2019 1:42:00 PM Performing Lab Footnotes:[facility] PERE[facility] - [address], [place] [id number] DUONG Reece [email or web address] Order: VITAMIN B1 WHOLE BLD [SO] Specimen Source: Body Site:Order Result Comment:Specimen Comment: Test(s) 715559-Kla. B1, Whole BloodSpecimen Comment: was developed and its performance characteristics determinedSpecimen Comment: by [facility]. It has not been cleared or approved by the FoodSpecimen Comment: and Drug Administration. LOINC Code Test Result Flag Range Units Date 06571-1 1Thiamine 114.9 66.5-200.0 nmol/L 07/06/2019 1:42:00 PM Performing Lab Footnotes:[facility] - [address] [place], [place] [id number] JANESSA BHAGAT Order: VITAMIN B6 [SO] Specimen Source: Body Site:Order Result Comment: Specimen Comment: Test(s) 740626-Vyezpsm [id number] Comment: was developed and its performance characteristics determinedSpecimen Comment: by [facility]. It has not been cleared or approved by the FoodSpecimen Comment: and Drug Administration. 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 Advance Directives *RHIO - CONSENT IS YES Directive Type Effective Date Front Desk Assistant Notes Supporting Document Name Address Phone No Directive Type 05/27/2015 8:31:55 Not Specified Not Specified Not Specified None No specified AM PT STATES NO ADVANCE DIRECTIVES Directive Type Effective Date Front Desk Assistant Notes Supporting Document Name Address Phone No Directive Type 03/05/2014 9:00:00 Not Specified Not Specified Not Specified None No specified AM Encounters Encounter Diagnosis Location Date TYPE 2 DM W/DIABETIC NEUROPATHY [facility] 07/06/2019 Family History No Significant Family History Functional [...]
== END 2019-07-25 12:41 | disposition home health service (06) ==
LOC: UCCORT 11:49
DX: R07.89 Other chest pain (principal); M54.6 Pain in thoracic spine; S09.90XA Unspecified injury of head, initial encounter; I10 Essential (primary) hypertension; Z91.09 Other allergy status, other than to drugs and biological substances; W00.0XXA Fall on same level due to ice and snow, initial encounter; Y92.9 Unspecified place or not applicable
CPT/HCPCS: 93005; 99212; G0463